=== PATIENT | female | born 1950 | race Caucasian/White ===

== ENCOUNTER 2020-01-01 10:17 | Outpatient (CLI) | payer MEDICARE, BC, SELFPAY ==
--- NOTE | ~2020-01-01 | XR_ITS ---
EXAMINATION: XR hand LT 2V INDICATION: Multiple joint pain, myalgia, arthritis TECHNIQUE: Two views of the left hand are obtained. COMPARISON: None available FINDINGS: There is no fracture. There is advanced osteoarthritis at the first carpometacarpal joint. Mild osteoarthritis is noted at the triscaphe joint. There is moderate to severe osteoarthritis invol ving multiple interphalangeal joints. Negative ulnar variance is noted. The soft tissues are unremark able. IMPRESSION: 1. Osteoarthritis without acute osseous abnormality Reviewed, dictated and finalized at location A.
--- NOTE | ~2020-01-01 | XR_ITS ---
EXAMINATION: XR hand RT 2V, XR wrist RT 2V DATE: 01/01/2020 10:42 INDICATION: Multiple joint pain. Myalgia. Arthritis. TECHNIQUE: 1. Posteroanterior and lateral views of the right wrist were obtained. 2. Dorsal palmar and lateral views of the right hand were obtained. COMPARISON: None. FINDINGS: Alignment of the hand and wrist are normal. No fracture identified. Polyarticular osteoarthritis, se mikaela at the first carpometacarpal and second and third distal interphalangeal joints, moderate at the first interphalangeal and fifth distal interphalangeal joints and mild at the wrist and a few metaca rpophalangeal and remaining interphalangeal joints. Diffuse osteopenia. No focal soft tissue swelling . IMPRESSION: 1. Polyarticular osteoarthritis at the right hand and wrist, moderate to severe at a few joints as de tailed above. 2. Diffuse osteopenia. Reviewed, dictated and finalized at location B. IMPRESSION: 1. Polyarticular osteoarthritis at the right hand and wrist, moderate to severe at a few joints as detailed above. 2. Diffuse osteopenia.
--- NOTE | ~2020-01-01 | XR_ITS ---
EXAMINATION: XR wrist LT 2V INDICATION: Multiple joint pain, myalgia, arthritis TECHNIQUE: Two views of the left wrist are obtained. COMPARISON: None available FINDINGS: There is no fracture. There is advanced osteoarthritis at the first carpometacarpal joint. Mild osteoarthritis is noted at the triscaphe joint. Negative ulnar variance is noted. The soft tissu es are unremarkable. IMPRESSION: 1. Osteoarthritis without acute osseous abnormality. Reviewed, dictated and finalized at location A.
== END 2020-01-01 10:18 | disposition home or self-care (01) ==
LOC: ANHIMG 10:27
PROVIDERS: Visit Provider Internal Medicine Rheumatology
DX: M25.50 Pain in unspecified joint (principal); M79.10 Myalgia, unspecified site; R53.81 Other malaise; R53.83 Other fatigue; M19.042 Primary osteoarthritis, left hand; M19.041 Primary osteoarthritis, right hand; M19.032 Primary osteoarthritis, left wrist; M19.031 Primary osteoarthritis, right wrist; M85.841 Other specified disorders of bone density and structure, right hand
CPT/HCPCS: 73100; 73120

== ENCOUNTER 2021-12-09 19:02 | Emergency (ER) | payer MEDICARE, BC, SELFPAY ==
--- NOTE | ~2021-12-09 | XR_ITS ---
EXAMINATION: XR chest 2V Exam Date/Time: 12/09/2021 19:32 CDT HISTORY: near syncope during exercise this PM., elev bp Comparison: None available. RESULT: Lines, tubes, and devices: None. Lungs and pleura: Senescent change. Left lower lung scarring. Cardiomediastinal silhouette: Prominent central pulmonary arteries. Aortic arch calcification. Other: No acute osseous or upper abdominal finding. IMPRESSION: No acute cardiopulmonary process. Reviewed, dictated and finalized at location K.
[2021-12-09 19:17] VITALS: BP 128/98; PULSE 83; RESP 16; TEMP 36.6; O2SAT 100
--- NOTE | 2021-12-09 19:23 | ECG_ITS ---
Measurements Intervals [place] Rate: 72 P: 55 VA: 155 QRS: -18 QRSD: 97 T: 1 QT: 389 QTc: 426 Interpretive Statements SINUS RHYTHM LOW QRS VOLTAGE IN PRECORDIAL LEADS BORDERLINE R WAVE PROGRESSION, ANTERIOR LEADS BORDERLINE T WAVE ABNORMALITY- INFERIOR LEADS BASELINE ARTIFACT- I, II, III, AVR, AVL, AVF, V1 BORDERLINE ECG NO PREVIOUS ECG AVAILABLE FOR COMPARISON Electronically Signed On 12-10-2021 6:48:38 CDT by Winston Gandhi D.O.
[2021-12-09 19:26] VITALS: BP 145/75; PULSE 82
[2021-12-09 19:27] VITALS: BP 134/75; PULSE 80
[2021-12-09 19:28] VITALS: BP 116/81; PULSE 104
--- NOTE | 2021-12-09 19:47 | ED.DIZZY ---
HPI - Dizziness General Chief Complaint: Dizziness Stated Complaint: PRE-SYNCOPE Time Seen by Provider: 12/09/21 19:04 Source: patient, EMS and RN notes reviewed Mode of arrival: EMS Limitations: no limitations History of Present Illness HPI Narrative: This is a 71 year old female who presents for evaluation of dizziness. Patient states she was doing tony today and she started having lightheaded. She states she was trying to hold on to the wall and she slid to the floor. Bystanders gave her gatorade and wet towels to her head. She states she had been exercising for about 40 minutes when this occurred. She denies chest pain , sob, palpitations, headache, nausea or vomiting. She states she last ate or drank at 11 am today. She denies history of dizziness prior to exercising. She takes part in tony class twice a week. She admits to not eat or drinking alot. MD elicited complaint: lightheadedness Related Data Home Medications Medication Instructions Recorded Confirmed Alive Calcium-Vitamin D3 12/09/21 Allergies Allergy/AdvReac Type Severity Reaction Status Date / Time No Known Allergies Allergy Verified 12/09/21 19:23 Review of Systems Review of Systems: All systems reviewed & are unremarkable except as noted in HPI and below Constitutional: Constitutional: Denies chills, Denies fatigue and Denies fever(s) Eyes: Eyes: Denies change in vision ENT: Denies nasal congestion and Denies sore throat Cardiovascular: Cardiovascular: Denies chest pain, Denies rapid heart rate and Denies radiating jaw, neck or arm pain Respiratory: Respiratory: Denies chest congestion, Denies cough and Denies dyspnea Gastrointestinal: Gastrointestinal: Denies abdominal pain, Denies nausea and Denies vomiting Neurologic: Reports dizziness, Denies headache(s) and Denies focal weakness PMFSH Past Medical History Medical History (Updated 12/10/21 @ 00:00 by Background Daemon) Patient denies medical problems Surgical History Surgical History (Updated 12/09/21 @ 19:52 by Benita Nuñez MD) No pertinent past surgical history Social History Social History (Updated 12/09/21 @ 19:52 by Benita Nuñez MD) Smoking status: Never smoker Exam Narrative: GENERAL: Well-appearing, well-nourished, and in no acute distress. HEAD: Normocephalic, atraumatic EYES: PERRLA and EOMI, conjunctiva clear without discharge EARS: TM's clear bilaterally without erythema or dullness NOSE: Nares clear, no rhinorrhea or epistaxis THROAT:Mucous membranes moist, Oropharynx normal without erythema, exudate, peritonsillar swelling or fluctuance NECK: Supple, without lymphadenopathy or mass RESPIRATORY: No respiratory distress, Airway patent, Respirations non-labored, Clear to auscultation without rales, rhonchi or wheeze HEART: Regular rate and rhythm. No murmur heard. Normal peripheral pulses. ABDOMEN: Soft, nontender, nondistended, normal active bowel sounds. No masses. No rebound or guarding, No organomegaly. EXTREMITIES: No edema, normal strength with full range of motion. SKIN: Warm, dry, normal color without rash NEURO: Alert and oriented x3. CN 2-12 grossly intact. No focal deficits. PSYCH: Normal mood and affect. Course Reevaluation(s) Reevaluation #1: Patient does not have any complaints. She was likely dizzy from dehydration and not eating. Date: 12/09/21 Time: 22:00 Vital Signs Vital signs: Vital Signs Temperature 97.8 F 12/09/21 19:17 Pulse Rate 83 12/09/21 19:17 Respiratory Rate 16 12/09/21 19:17 Blood Pressure 128/98 H 12/09/21 19:17 Pulse Oximetry 100 12/09/21 19:17 Oxygen Delivery Room Air 12/09/21 19:17 Temperature 97.8 F 12/09/21 19:17 Pulse Rate 78 12/09/21 22:16 Respiratory Rate 18 12/09/21 22:16 Blood Pressure 134/78 12/09/21 22:16 Pulse Oximetry 99 12/09/21 22:16 Oxygen Delivery Room Air 12/09/21 19:17 MDM - Dizziness Lab Data Attestati
[2021-12-09 20:08] LABS: Glucose Point of Care 90 mg/dl (65-105)
[2021-12-09] MEDS: SODIUM CHLORIDE 0.9% IV 1,000 ML 999 ML IV CONT (20:13)
[2021-12-09 20:25] LABS: Basophils Percent Auto 0.5 % (0.2-1.2); Eosinophils Absolute Auto 0.1 K/mm3 (0-0.3); Eosinophils Percent Auto 1.1 % (0-4.4); Hematocrit 37.5 % (37.0-47.0); Hemoglobin 12.2 g/dL (12.0-15.0); Immature Granulocyte Absolute 0.03 K/mm3 (0.00-0.031); Immature Granulocyte Percent A 0.5 % (0-0.5); Lymphocytes Absolute Auto 1.68 K/mm3 (0.9-3.2); Mean Corpuscular HGB Conc 32.5 g/dl (32-36); Mean Corpuscular Hemoglobin 27.9 pg (26-34); Mean Corpuscular Volume 85.8 fl (80-100); Mean Platelet Volume 9.2 fl (7.4-10.4); Monocytes Absolute Auto 0.6 K/mm3 (0.1-0.6); Monocytes Percent Auto 9.8 % (2.6-8.5); Neutrophils Percent Auto 62.1 % (45.5-73.1); Platelet Count Result 276 k/mm3 (150-375); Red Blood Count 4.37 M/mm3 (4.2-5.4); Red Cell Distribution Width 12.3 % (11.5-14.5); White Blood Count 6.5 K/mm3 (4.5-10.0)
[2021-12-09 20:26] LABS: Appearance Urine Slightly Cloudy (Clear); Bilirubin Urine Negative (Negative); Blood Urine Trace-lysed (Negative); Color Urine Yellow (Yellow); Glucose Urine UA Trace mg/dL (Negative); Ketones Urine Trace mg/dL (Negative); Leukocyte Esterase Ur 1+ LEU/UL (Negative); Nitrate Urine Negative (Negative); Protein Urine Negative (Negative); Urobilinogen Urine 0.2 mg/dL (<2.0)
[2021-12-09 20:31] LABS: Bacteria Urine Trace /hpf; Mucus Urine Few /lpf; Squamous Epithelial Cell Urine Moderate /hpf (Few)
[2021-12-09 20:39] LABS: Alanine Aminotransferase 16 U/L (6-35); Albumin Level 4.2 g/dL (3.5-5.1); Alkaline Phosphatase 88 U/L (38-126); Anion Gap 12 mmol/L (8-16); Aspartate Amino Transferase 25 U/L (14-36); Bilirubin,Total 0.5 mg/dL (0.2-1.3); Blood Urea Nitrogen 15 mg/dL (7-17); Calcium 8.9 mg/dL (8.4-10.2); Carbon Dioxide 25 mmol/L (22-30); Chloride 104 mmol/L (98-107); Estimated CRCL calculation 53 ml/min; Estimated Glomerular Filt Rate > 60; Glucose 95 mg/dL (65-110); Magnesium 1.9 mg/dL (1.6-2.3); Potassium 3.5 mmol/L (3.4-5.0); Sodium 141 mmol/L (137-145)
[2021-12-09 20:42] LABS: Add Urine Microscopic? YES
[2021-12-09 20:50] LABS: Troponin I 0.016 ng/mL (0.000-0.034)
[2021-12-09] MEDS: LACTATED RINGERS 1,000 ML 999 ML IV CONT (21:13)
[2021-12-09 22:16] VITALS: BP 134/78; PULSE 78; RESP 18; O2SAT 99
== END 2021-12-09 22:12 | disposition home or self-care (01) ==
PROVIDERS: Emergency Provider General Practice
DX: R42 Dizziness and giddiness (principal); R82.90 Unspecified abnormal findings in urine
CPT/HCPCS: 36415; 71046; 80053; 81001; 82948; 83735; 84484; 85025; 93005; 96360; 96361; 99284; J7030; J7120

== ENCOUNTER 2025-03-15 22:31 | Emergency (ER) | payer MEDICARE, BC, SELFPAY ==
--- NOTE | ~2025-03-15 | CT_ITS ---
CTA CHEST CLINICAL HISTORY: SOB, chest discomfort; dimer >1 . COMPARISON: None TECHNIQUE: Helical CTA performed from thoracic inlet to upper abdomen 100 mL Omnipaque 350 Coronal, sagittal reformats. Multiplanar MIPS CT images acquired with automatic exposure control for dose reduction DLP: 324 mGy-cm FINDINGS: Pulmonary arteries: No PE. Thoracic Aorta: No dissection or aneurysm. Heart/pericardium: Unremarkable. RV/LV ratio: Normal. Lungs/Pleura: Minimal atelectasis left lower lobe. Tracheobronchial tree: Patent. Nodes: No enlarged nodes. Bones: No acute bony abnormality. Soft tissues: Unremarkable. Visualized upper abdomen: Unremarkable. IMPRESSION: 1. No PE or other acute cardiopulmonary findings. Reviewed, dictated and finalized at location R. LESNAKE FARMER
--- NOTE | ~2025-03-15 | XR_ITS ---
Examination: XR chest 2V Clinical History: sob Comparison: 12/09/2021 Technique: PA and Lateral Findings: Cardiomediastinal silhouette normal size and configuration. Lungs clear. Except trace left basilar atelectasis and/or scar. No acute bony abnormality. IMPRESSION: 1. No acute cardiopulmonary findings. Reviewed, dictated and finalized at location R. HT NURSE
[2025-03-15 22:31] VITALS: BP 130/79; PULSE 85; RESP 20; TEMP 36.8; O2SAT 95
[2025-03-15 22:42] VITALS: BP 130/79; PULSE 80; RESP 22; O2SAT 97
[2025-03-15 22:43] VITALS: BP 130/79; PULSE 80; PULSE 83; RESP 16; RESP 26; TEMP 36.8; O2SAT 97
--- NOTE | 2025-03-15 22:45 | ECG_ITS ---
Test Date: 2025-03-15 22:49:09 Measurements Intervals [place] Rate: 77 P: 56 CO: 161 QRS: -19 QRSD: 106 T: 31 QT: 393 QTc: 446 Interpretive Statements SINUS RHYTHM WITH OCCASIONAL SUPRAVENTRICULAR PREMATURE COMPLEXES LOW QRS VOLTAGE IN PRECORDIAL LEADS PATTERN CONSISTENT WITH PULMONARY DISEASE BASELINE ARTIFACT- I, III, AVR, AVL BORDERLINE ECG No previous ECG available for comparison Electronically Signed On 03-16-2025 09:08:04 COST ESTIMATING MANAGER by Winston Gandhi D.O.
[2025-03-15 22:46] VITALS: BP 138/67; PULSE 80; RESP 23; O2SAT 97
[2025-03-15 23:33] LABS: Influenza A QL RT-PCR Negative (Negative); Influenza B QL RT-PCR Negative (Negative); RSV RNA, RT-PCR Negative (Negative); SARS-CoV-2 RNA PCR Negative (Negative)
[2025-03-15 23:46] VITALS: BP 136/56; PULSE 81; RESP 14
[2025-03-16] VITALS (28 sets, daily range): BP systolic 109–129; BP diastolic 65–83; PULSE 73–87; RESP 15–28; TEMP 36.8; O2SAT 89–99
[2025-03-16] MEDS: ASPIRIN 81 MG CHEWABLE TABLET 324 MG PO (00:11)
[2025-03-16 00:26] LABS: Hematocrit 34.2 % (37.0-47.0); Hemoglobin 11.5 g/dL (12.0-15.0); Immature Granulocyte Percent A 0.2 % (0-0.5); Lymphocytes Absolute Auto 0.43 K/mm3 (0.9-3.2); Mean Corpuscular HGB Conc 33.6 g/dl (32-36); Mean Corpuscular Hemoglobin 29.0 pg (26-34); Mean Corpuscular Volume 86.1 fl (80-100); Nucleated Red Blood Cells Absolute Auto 0.000 K/mm3 (0.0-0.012); Nucleated Red Blood Cells Perc 0.0 % (0.0-0.2); Platelet Count Result 213 k/mm3 (150-375); Red Blood Count 3.97 M/mm3 (4.2-5.4); White Blood Count 6.6 K/mm3 (4.5-10.0)
[2025-03-16 00:36] LABS: Alanine Aminotransferase 27 U/L (6-35); Albumin Level 3.9 g/dL (3.5-5.1); Alkaline Phosphatase 105 U/L (38-126); Anion Gap 4 mmol/L (4-12); Aspartate Amino Transferase 35 U/L (14-36); Bilirubin,Total 0.7 mg/dL (0.2-1.3); Blood Urea Nitrogen 17 mg/dL (7-17); Calcium 8.9 mg/dL (8.4-10.2); Carbon Dioxide 26 mmol/L (22-30); Chloride 108 mmol/L (98-107); Estimated CRCL calculation 51 ml/min; Estimated Glomerular Filt Rate > 60; Glucose 125 mg/dL (65-110); Lipase 157 U/L (23-300); Potassium 3.7 mmol/L (3.4-5.0); Sodium 138 mmol/L (137-145); Total Protein 6.7 g/dL (6.3-8.2)
[2025-03-16 00:37] LABS: INR 1.1; Prothrombin Time 13.9 Seconds (11.1-14.7)
[2025-03-16 00:39] LABS: Partial Thromboplastin Time 31.0 Seconds (22.3-36.8)
[2025-03-16 00:48] LABS: Troponin I < 0.012 ng/mL (0.000-0.034)
--- NOTE | 2025-03-16 00:48 | ED_ITS ---
HPI - SOB/Dyspnea General Chief Complaint: Shortness of Breath/Dyspnea Stated Complaint: SOB Time Seen by Provider: 03/16/25 00:35 Source: patient and family Mode of arrival: EMS Limitations: no limitations History of Present Illness HPI Narrative: Patient presents from home where she lives by herself with shortness of breath that started today. Has been having uri symptoms for 3 days. No underlying respiratory issues. No edema. EMS gave O2 which she reports made her feel better. They also administered Zofran for her nausea and she states this is better now. She felt lightheaded when laying back. Took a home covid test that was negative. Experiencing chest discomfort. History of breast cancer (finished treatment >1 year ago in November). No anticoagulation. History of left knee replacement in april 2024. Has been taking Tylenol. Has had a cough productive of phlegm. No fevers/chills/sick contacts. Cardiac risk factors HTN:0 HLD:0 DM:0 Obese:0 Smoker:0 Personal history NC/TIA/CVA: 0 Fam Hx NC in first degree relative <65yo:0 Related Data Home Medications ?Medication ?Instructions ?Recorded ?Confirmed ?Last Taken ?Type Alive Calcium-Vitamin D3 12/09/21 Unknown History Allergies Allergy/AdvReac Type Severity Reaction Status Date / Time No Known Allergies Allergy Verified 03/15/25 22:58 PMFSH Past Medical History Medical History History of breast cancer Surgical History Surgical History History of left knee replacement Apr 2024 Social History Social History Smoking status: Never smoker Living arrangements: alone Exam 2 Narrative: GENERAL: Well-appearing, well-nourished, and in no acute distress. HEAD: Normocephalic, atraumatic. EYES: Non injected, non icteric ENT: Nares clear, no rhinorrhea or epistaxis. Gross auditory acuity intact. NECK: Supple. No meningismus. CHEST: Speaking in full sentences. No respiratory distress. Lungs clear to auscultation bilaterally without wheezes, crackles or focal consolidation. HEART: Regular rate and rhythm. . ABDOMEN: Soft, nondistended. No rigidity or guarding. Not peritoneal EXTREMITIES: Normal range of motion. No lower extremity edema. SKIN: Warm, dry, no rash. NEURO: No focal deficits. Alert and oriented. Answering questions. Following commands. Normal speech without aphasia or dysarthria. PSYCH: Normal mood and affect. Course Vital Signs Vital signs: Vital Signs Temperature 98.2 F 03/15/25 22:31 Pulse Rate 85 03/15/25 22:31 Respiratory Rate 20 03/15/25 22:31 Blood Pressure 130/79 03/15/25 22:31 Pulse Oximetry 95 03/15/25 22:31 Oxygen Delivery Room Air 03/15/25 22:31 Temperature 98.3 F 03/16/25 03:54 Pulse Rate 76 03/16/25 07:01 Respiratory Rate 20 03/16/25 07:01 Blood Pressure 127/66 03/16/25 07:01 Pulse Oximetry 94 03/16/25 07:01 Oxygen Delivery Room Air 03/15/25 22:42 MDM MDM Narrative Medical decision making narrative: Patient presents with shortness of breath that started today, associated with some chest discomfort. Has been having URI symptoms (productive cough) for 3 days. Also nausea although this is improved after EMS gave zofran. they also applied o2 for comfort and she reports feeling better after this. not currently on O2. In the emergency department she is afebrile with vital signs within normal limits. Given history of breast cancer D-dimer ordered. Viral swab negative. Normocytic anemia, a drop of 0.7 from previous which was several years ago. HEART SCORE History 2 highly suspicious 1 moderately suspicious 0 slightly suspicious History score [address] depression/elevation not due to LBBB, LVH, or digoxin [address] depression but LBBB, LVH, nonspecific repolarization changes 0 normal ECG score 0 Age 2 >/= 65 1 45-64 0 <45 Age score 2 Risk factors (HTN, hypercholesterolemia, DM, obesity with BMI >30, current smoker or cessation </=3mo), positive fam hx with parent or sibling with CVD before age 65, atherosclerotic disease (prior NC, PCI/CABG, CVA/TIA, or peripheral arterial disease) 2 >/= 3 risk factors or history of atherosclerotic dz 1 - 1-2 risk factors 0 no known risk factors Risk factor score 0 Initial Troponin 2 >3 times normal limit 1 1-3 times normal limit 0 less than or equal to normal limit Troponin score 0 Total HEART Score 2 D[address] >[address] PE ordered. Repeat troponin within normal limits. There is a significant delay in obtaining CT interpretation. Multiple phone calls are made including to stat rad as well as Radiology Department at [facility] once there daytime hours. CT as below. Patient otherwise has been stable for discharge with appropriate vital signs. Discharged advised follow-up with PCP and cardiology outpatient and provided prescription for Tessalon Perles. Differential Diagnosis Differential Diagnosis: bronchitis, acute viral syndrome, PNA, PE; ACS; PTX Lab Data [facility] Lab Attestation statement: I personally reviewed the patient's lab results. 03/16/25 00:13 03/16/25 00:13 Labs: Lab Results 03/15/25 03/16/25 03/16/25 Range/Units 22:47 00:13 02:56 WBC 6.6 (4.5-10.0) K/mm3 RBC 3.97 L (4.2-5.4) M/mm3 Hgb 11.5 L (12.0-15.0) g/dL Hct 34.2 L (37.0-47.0) % MCV 86.1 (80-100) fl MCH 29.0 (26-34) pg MCHC 33.6 (32-36) g/dl RDW 12.5 (11.5-14.5) % Plt Count 213 (150-375) k/mm3 MPV 8.8 (7.4-10.4) fl Immature Gran % (Auto) 0.2 (0-0.5) % Neut % (Auto) 83.3 H (45.5-73.1) % Lymph % (Auto) 6.5 L (18.3-44.2) % Jones % (Auto) 9.2 H (2.6-8.5) % Eos % (Auto) 0.3 (0-4.4) % Baso % (Auto) 0.5 (0.2-1.2) % Lymph # (Auto) 0.43 L (0.9-3.2) K/mm3 Jones # (Auto) 0.6 (0.1-0.6) K/mm3 Eos # (Auto) 0.0 (0-0.3) K/mm3 Baso # (Auto) 0.0 (0.0-0.1) K/mm3 Abs Immat Gran (auto) 0.01 (0.00-0.031) K/mm3 Absolute Neuts (auto) 5.5 (1.3-6.7) K/mm3 Absolute Nucleated RBC 0.000 (0.0-0.012) K/mm3 Nucleated RBC % 0.0 (0.0-0.2) % PT 13.9 (11.1-14.7) Seconds INR 1.1 APTT 31.0 (22.3-36.8) Seconds D-Dimer 1.12 H (<0.48) ug/mL Sodium 138 (137-145) mmol/L Potassium 3.7 (3.4-5.0) mmol/L Chloride 108 H (98-107) mmol/L Carbon Dioxide 26 (22-30) mmol/L Anion Gap 4 (4-12) mmol/L BUN 17 (7-17) mg/dL Creatinine 0.75 (0.7-1.0) mg/dL Estim Creat Clear Calc 51 ml/min Estimated GFR > 60 (59 - ) Glucose 125 H (65-110) mg/dL Calcium 8.9 (8.4-10.2) mg/dL Total Bilirubin 0.7 (0.2-1.3) mg/dL AST 35 (14-36) U/L ALT 27 (6-35) U/L Alkaline Phosphatase 105 (38-126) U/L Troponin I < 0.012 < 0.012 (0.000-0.034) ng/mL Total Protein 6.7 (6.3-8.2) g/dL Albumin 3.9 (3.5-5.1) g/dL Lipase 157 (23-300) U/L Influenza A (RT-PCR) Negative (Negative) Influenza B (RT-PCR) Negative (Negative) RSV (RT-PCR) Negative (Negative) SARS-CoV-2 RNA (RT-PCR) Negative (Negative) Imaging Data Attestation: I personally reviewed and interpreted this imaging study as follows: My impression: Chest x-ray without acute intrathoracic process on my independent interpretation. Radiologist's impression: ITS Impressions Chest CTA 03/16/25 08:14 IMPRESSION: 1. No PE or other acute cardiopulmonary findings. Chest X-Ray 03/16/25 08:18 IMPRESSION: 1. No acute cardiopulmonary findings. ECG Data EKG #1: Attestation: I personally reviewed and interpreted this ECG as follows: ECG completion date: 03/15/25 ECG completion time: 22:49 Interpretation: Normal sinus rhythm at a rate of 77 beats per minute. There is a PVC. CA interval 161. QRS 106. QT/QTC 393/446. T-wave flattening in 3 but upright in contiguous inferior leads. No other T-wave inversions. No marked ST segment elevation or depression. EKG #2: Attestation: I personally reviewed and interpreted this ECG as follows: ECG completion date: 03/16/25 ECG completion time: 02:59 Interpretation: Normal sinus rhythm at a rate of 72 beats per minute. CA interval 160. QRS 101. QT/QTC 398/437. T-wave flattening versus inversion in 3 but upright in contiguous inferior leads. No other T-wave inversions. No ST segment elevations or depressions. Discharge Plan Discharge Clinical Impression: Shortness of breath, Normocytic anemia, Chest discomfort, Acute cough Patient Disposition: Home Condition: Stable Instructions: Antibiotic Form, Chest Pain (DC), Acute Bronchitis (ED), Anemia (ED), Acute Cough (ED), Shortness of Breath (ED) Additional Instructions: Many apologies for the delay in interpretation of your CT scan. No evidence of blood clot. As we discussed, your symptoms sound viral although you tested negative for COVID, influenza a, influenza B, and RSV. We call this bronchitis. Rest and maintain your hydration and you can use acetaminophen and ibuprofen for supportive care. The benzonatate/Tessalon Perles may help with the cough. Your cardiac workup was reassuring. However, given your age/risk factors, I do recommend you follow-up with a textile conversion manager outpatient. The name of a doctor is listed below. Follow-up with your primary care physician. If you do not have 1 the name of a doctor is listed below. Return to the emergency department any new, worsening, or unmanaged symptoms. Patient Language: Syriac Prescriptions: New benzonatate 100 mg capsule 100 mg PO BID PRN (Reason: cough) Qty: 20 0RF No Action Alive Calcium-Vitamin D3 nitrofurantoin monohyd/m-cryst [Macrobid] 100 mg capsule 100 mg PO Q12H 3 Days Qty: 6 0RF Rx Instructions: must administer with a meal/food Follow-up/Referrals: Chino Navarro MD [Physician, Cardiology] Thea Rey DO [Physician, Family Practice] PHYSICIAN NOT ON STAFF,NONSTAFF [Non-Staff] Stand Alone Forms: Work/School Release IP Time of Disposition: 08:33
--- OUTSIDE RECORDS SUMMARY | 2025-03-16 01:38 | XMS_ITS ---
Author Organization [facility] Address [address] [place] [address] Care Team Providers Care Burr Sander Name Role Phone Ortiz Olson MD Primary Care Provider Deidre Pineda MD Unavailable Rebeca Scherer MD Unavailable [phone] Andrei Huerta DO Unavailable [phone] Active Problems Problem Noted Date Diagnosed Date S/P total knee arthroplasty, left 05/30/2024 Personal history of radiation therapy 12/01/2023 Invasive ductal carcinoma of breast, female, rig ht 10/06/2023 Assessment & Plan (12/05/2023 10:10 AM CDT): Continues her routine follow-up and breast cancer screening Malignant neoplasm of upper- outer quadrant of right breast in female, estrogen receptor positive 10/03/2023 Cancer Staging:Pathologic stage from 10/03/2023:Stage IA(pT1b, pN0(sn), cM0, G1, ER+, CO+, HER2-, Oncotype DX score: 10) - Signed by Rebeca Scherer MD on 10/03/2023 Overweight 09/05/2023 Assessment & Plan (12/05/2023 10:11 AM CDT): Begin low-dose semaglutide as outlined above Right lateral abdominal pain 01/21/2023 Assessment & Plan (01/21/2023 9:54 AM CDT): Possibly musculoskeletal at this time we will start with lab work including a CBC/CMP/sed rate/CRP if these tests are normal I think we can safely follow her with heat and anti-inflammatory and stretching. At this point no other evaluations need to be done with a completed urinalysis/CT abdomen and pelvis/ultrasound of pelvis/gynecologic workup. She is status post appendectomy. Colonoscopy done 2 years ago was benign with 2 polyps and no evidence of diverticular disease Lichen amyloidosis 09/01/2022 Primary osteoarthritis of left knee 07/21/2022 07/21/2022 Assessment & Plan (09/01/2022 2:39 PM CDT): She now follows with Dr. Abrams at [facility], reports that she is due for injections there has been no mention of surgery coming up Osteopenia of multiple sites 11/26/2019 Left leg pain 01/11/2019 Assessment & Plan (03/28/2019 2:19 PM TRACTOR EXPERT): Has seen Dr ABRAMS, had injection due for PT Assessment & Plan (02/22/2019 2:31 PM TRACTOR EXPERT): She has seen Dr. Neely MRI is planned Assessment & Plan (01/11/2019 8:56 AM CDT): She is describing left-sided popliteal pain which has been going on 3 months, at this point I will refer her to Orthopedics consider Marin cyst Body mass index (BMI) 26.0-26.9, adult 8 Overview (02/03/2018): BMI Follow-up includes: nutrition counseling, exercise counseling and education provided. Assessment & Plan (11/08/2023 11:26 AM CDT): The patient's major issue is weight loss. Medication restart is planned, and is on prescription 0.5. A prescription was also called in, and she has insurance coverage. Plan: Wegovy 0.5/0.25 for weight management. Monitor weight loss progress closely. Schedule a follow-up appointment in approximately 8 weeks. Patient's goal weight set at approximately 150 lbs; continue to support and monitor progress towards this goal. Assessment & Plan (09/05/2023 11:17 AM CDT): The patient's major issue is weight loss. Medication restart is planned, and today she received samples of Wegovy 0.25. A prescription was also called in, and she has insurance coverage. Plan: Restart Wegovy 0.25 for weight management. Monitor weight loss progress closely. Schedule a follow-up appointment in approximately 8 weeks. Patient's goal weight set at approximately 150 lbs; continue to support and monitor progress towards this goal. Assessment & Plan (06/13/2023 2:17 PM CDT): BMI Follow-up includes: nutrition counseling, exercise counseling, and education provided. She would like to lose another 12 lb patient states. We discussed various options. Will increase phentermine to 37.5 and follow Patient also given a sample of semaglutide 0.25 to use weekly I will see her back in 8 weeks Assessment & Plan (04/26/2023 10:09 AM TRACTOR EXPERT): She would like to lose another 12 lb patient states. We discussed various options. We will try her on low-dose phentermine 8 mg as she has no other contraindications at this point. I will follow up in 2 months Assessment & Plan (03/24/2023 1:29 PM TRACTOR EXPERT): BMI Follow-up includes: nutrition counseling, exercise counseling, and education provided. Has gained 12 pounds in last few months, can not find WEGOVY . Will attempt to restart Assessment & Plan (01/21/2023 9:23 AM CDT): BMI Follow-up includes: nutrition counseling, exercise counseling, and education provided. Assessment & Plan (12/02/2022 3:03 PM CDT): BMI Follow-up includes: nutrition counseling, exercise counseling, and education provided. She is very close to goal weight takes Wegovy every other week at this point Assessment & Plan (04/09/2022 7:40 AM TRACTOR EXPERT): We will restart semaglutide 0.25, I have given her samples today I would like her to increase 2.5. We can follow up with her in a month Assessment & Plan (12/25/2021 9:30 AM CDT): Did well with liraglutide 1.2 however lack of samples makes it unsustainable On mounjaro has lost 6 pounds with 5 mg, will change to q oweek Assessment & Plan (11/03/2020 12:53 PM CDT): Goal weight of 160 Will continue ozempic to 0.75, we discussed side effects she states she is having very minimal nausea I gave two samples today of Ozempic Encouraged her to continue working on diet exercise Assessment & Plan (05/12/2020 11:24 AM TRACTOR EXPERT): We discussed weight loss today, at this point she is maintaining her weight on Liraglutide 3.0 however we do not have samples will try to arrange for some samples for Assessment & Plan (01/21/2020 2:45 PM TRACTOR EXPERT): Continue 3.0 of Liraglutide until we follow-up in the next 6 weeks I gave her samples today Assessment & Plan (07/24/2019 11:10 AM CDT): BMI Follow-up includes: nutrition counseling, exercise counseling and education provided. Assessment & Plan (05/08/2019 7:47 AM TRACTOR EXPERT): We discussed weight loss extensively today continue her phentermine 15 q.a.m. will continue samples of Liraglutide Assessment & Plan (07/07/2018 1:38 PM CDT): We had a discussion about weight loss today she has lost another 2 lb states she would like to continue to work on weight loss diet, we will continue her at 1.2 of Liraglutide follow-up in a month Assessment & Plan (02/22/2018 10:22 AM TRACTOR EXPERT): BMI Follow-up includes: nutrition counseling, exercise counseling and education provided. She is down another 5 lb since 3 weeks ago she is on 1.8 of Liraglutide her goal is 160 she is at 165 we will see her in 3 months she will work on diet exercise and weight loss at this point Encounter for Medicare annual wellness exam 10/21 Assessment & Plan (05/30/2024 10:12 AM CDT): A Medicare Annual Wellness Visit (AWV) was done today as well. The patient filled out a depression screen, functional assessment screen, health risk assessment, and other physicians list. All the elements of this exam were completed as outlined by CMS. Please note that the documentation of this is split between paper documentation and this electronic record. Assessment & Plan (05/14/2022 8:35 AM TRACTOR EXPERT): A Medicare Annual Wellness Visit (AWV) was done today as well. The patient filled out a depression screen, functional assessment screen, health risk assessment, and other physicians list. All the elements of this exam were completed as outlined by CMS. Please note that the documentation of this is split between paper documentation and this electronic An electrocardiogram was performed in the office today. Review of the electrocardiogram shows normal sinus rhythm, no ST-T wave changes, no ischemic changes, no other abnormalities. Low-voltage Assessment & Plan (05/11/2021 10:13 AM TRACTOR EXPERT): A Medicare Annual Wellness Visit (AWV) was done today as well. The patient filled out a depression screen, functional assessment screen, health risk assessment, and other physicians list. All the elements of this exam were completed as outlined by CMS. Please note that the documentation of this is split between paper documentation and this electronic record. Assessment & Plan (11/30/2019 9:12 AM CDT): A Medicare Annual Wellness Visit (AWV) was done today as well. The patient filled out a depression screen, functional assessment screen, health risk assessment, and other physicians list. All the elements of this exam were completed as outlined by CMS. Please note that the documentation of this is split between paper documentation and this electronic record. Assessment & Plan (11/22/2018 9:17 AM CDT): A Medicare Annual Wellness Visit (AWV) was done today as well. The patient filled out a depression screen, functional assessment screen, health risk assessment, and other physicians list. All the elements of this exam were completed as outlined by CMS. Please note that the documentation of this is split between paper documentation and this electronic record. Assessment & Plan (11/18/2017 11:24 AM CDT): A Medicare Annual Wellness Visit (AWV) was done today as well. The patient filled out a depression screen, functional assessment screen, health risk assessment, and other physicians list. All the elements of this exam were completed as outlined by CMS. Please note that the documentation of this is split between paper documentation and this electronic record. Slow transit constipation 11/18/2017 Assessment & Plan (09/05/2023 11:16 AM CDT): Assessment: Constipation has resolved completely. The patient has discontinued Linzess. Assessment & Plan (06/13/2023 2:16 PM CDT): Reports that constipation has complete resolved. She has stopped the Linzess at this point Assessment & Plan (04/26/2023 10:18 AM TRACTOR EXPERT): Reports she is doing very well despite not taking Linzess 72 reports a bowel movement every 2-3 days Assessment & Plan (12/02/2022 3:03 PM CDT): Stable on current regimen of Linzess states she takes 72 and sometimes 145 Assessment & Plan (09/01/2022 1:11 PM CDT): Stable on current regimen of Linzess states she takes 72 and sometimes 145 Assessment & Plan (05/14/2022 8:34 AM TRACTOR EXPERT): Reports that 72 and 145 of Linzess were quite well for her Assessment & Plan (02/25/2022 9:53 AM TRACTOR EXPERT): She has seen Colorectal surgery about internal hemorrhoids. Continue Metamucil continue Linzess samples given to Assessment & Plan (12/25/2021 9:31 AM CDT): continues on linzess, indorsing constipation Assessment & Plan (09/22/2021 2:17 PM CDT): Reporting no significant symptoms on Liraglutide 70 to Assessment & Plan (04/06/2021 9:53 AM TRACTOR EXPERT): She states she is doing very well on Linzess 72 we will change her prescription from 145 continue the same Assessment & Plan (09/16/2020 11:03 AM CDT): She states she is doing very well on Linzess 72 we will change her prescription from 145 continue the same Assessment & Plan (08/11/2020 11:24 AM CDT): She is doing very well on 145 a Linzess, I gave her samples today Assessment & Plan (05/12/2020 11:23 AM TRACTOR EXPERT): She is doing very well on 145 a Linzess, I gave her samples today Assessment & Plan (03/17/2020 1:21 PM TRACTOR EXPERT): She is doing very well on 145 a Linzess, she has some diarrhea when she takes a arthritis medication Assessment & Plan (01/21/2020 2:45 PM TRACTOR EXPERT): She is doing very well on 145 a Linzess Assessment & Plan (01/04/2020 9:37 AM CDT): She is doing very well on 1 45 of Linzess, we will continue the same samples given today Assessment & Plan (07/24/2019 1:24 PM CDT): Continue Linzess 145 daily Assessment & Plan (05/10/2019 1:27 PM TRACTOR EXPERT): She is doing very well on Linzess 145 Assessment & Plan (01/11/2019 8:56 AM CDT): States that Linzess 145 is working well for her however insurance on a cover 72 we will give her samples today Assessment & Plan (08/16/2018 1:46 PM CDT): States that bowels are better on Linzess 145, she states she still having bowel movement maybe once a weeks Assessment & Plan (07/07/2018 1:38 PM CDT): She has been taking Linzess 72 states she still having a bowel movement once a week we will have her alternate 72 with 145 Assessment & Plan (05/23/2018 10:13 AM TRACTOR EXPERT): States she is doing ok 72 is to low and 145 is too high,has had capsule endoscopy Assessment & Plan (02/22/2018 10:21 AM TRACTOR EXPERT): States she is doing very well on 145 of Linzess, she is seeing Dr. don to for capsule endoscopy coming up Assessment & Plan (02/03/2018 11:08 AM TRACTOR EXPERT): doing very well on linzess, Assessment & Plan (01/10/2018 10:06 AM CDT): states that 145 of linzess has not helped at all, has not had BM for Several days Assessment & Plan (12/09/2017 10:54 AM CDT): States she did somewhat better on Linzess 72 with a bowel movement every 3 days we will increase her to 145 Primary osteoarthritis of fi rst carpometacarpal joint of left hand 09/18/2015 Arthralgia of multiple joints 08/04/2013 Overview (06/23/2016): JOINT PAIN-MULT JTS Assessment & Plan (12/05/2023 10:10 AM CDT): Follows closely with Rheumatology.Follows with [facility] for arthritis and multiple arthralgias as well as inflammatory arthritis. Stable at this time on current regimen Assessment & Plan (09/05/2023 11:09 AM CDT): Follows with [facility] for arthritis and multiple arthralgias as well as inflammatory arthritis. Stable at this time on current regimen Assessment & Plan (12/02/2022 3:03 PM CDT): Follows with [facility] for arthritis and multiple arthralgias as well as inflammatory arthritis. Stable at this time on current regimen Assessment & Plan (09/22/2021 2:17 PM CDT): Follows with Rheumatology continues on Plaquenil. Due for lab work today Assessment & Plan (04/06/2021 9:54 AM TRACTOR EXPERT): Reports no significant joint issues/continues on hydroxychloroquine Assessment & Plan (05/12/2020 11:23 AM TRACTOR EXPERT): States she is not having any other significant symptoms at this time Assessment & Plan (01/21/2020 2:45 PM TRACTOR EXPERT): She has seen Rheumatology the patient states that she was told that her thyroid function tests were web normal we will have these repeated today Raynaud's phenomenon 08/04/2013 Overview (06/24/2016): RAYNAUD'S SYNDROME Assessment & Plan (05/12/2021 8:51 AM TRACTOR EXPERT): Follows with Rheumatology no significant issues Current Treatment and Therapy Plans No current plan information found. Past Treatment and Therapy Plans No past plan information found. Radiation Treatments * Course [id number]_[id number]/17/2023 - 10/21/2023 Treatment Period Energy Fraction Dose Fractions Total Dose Plans Planned R BREAST APBI 10/17/2023 - 10/21/2023 600 5 / 3,000 Reference Points Delivered [id number]_3000 10/17/2023 - 10/21/2023 3,000 Resolved Problems Problem Noted Date Diagnosed Date Resolved Date Diabetes mellitus 05/30/2024 05/30/2024 URI, acute 02/25/2022 05/14/2022 Assessment & Plan (02/25/2022 9:53 AM TRACTOR EXPERT): She appears to have a bacterial bronchitis will start her on a Z-Nii and Brendan Guerrero follow as her clinical course dictates Lower urinary tract symptoms 06/22/2021 05/14/2022 Assessment & Plan (06/22/2021 2:06 PM CDT): She had a recent E coli UTI and since has had multiple urinary symptoms she has been seen by her scarifier operator she is keeping a voiding diary. I will refer her to Urogynecology for evaluation COVID-19 03/17/2020 12/23/2023 Assessment & Plan (03/17/2020 1:20 PM TRACTOR EXPERT): Had positive test 12-3, no current sx Weight gain 08/16/2018 12/02/2022 Assessment & Plan (09/01/2022 1:10 PM CDT): She is doing very well with another 6 lb weight loss she is down to 159. She would like to stay in the 150-55 range I gave her another sample of semaglutide today Assessment & Plan (07/21/2022 2:06 PM CDT): Has gained roseanne will restart ozempic 0.5, Assessment & Plan (05/14/2022 8:34 AM TRACTOR EXPERT): She is close to her goal weight continues on Wegovy twice a month, samples given today Assessment & Plan (02/25/2022 9:53 AM TRACTOR EXPERT): She is held steady on current weight of 158 we discussed continuing her current Tirezepitide however dosing is difficult because of a supply chain issues Assessment & Plan (11/27/2021 9:21 AM CDT): Did well with liraglutide 1.2 however lack of samples makes it unsustainable On mounjaro roseanne stayed the same at 2.5 will inc to 5 Assessment & Plan (10/23/2021 9:30 AM CDT): Did well with liraglutide 1.2 however lack of samples makes it unsustainable Will switch to terezepitide 2.5 samples given today Assessment & Plan (09/22/2021 2:17 PM CDT): She has gained when weight back to about 10 lb. She would like to weigh between 155 and 160. I gave her samples today Liraglutide. We can follow her up in a month she will start with 0.6 Assessment & Plan (06/22/2021 1:28 PM CDT): Patient has done very well on samples of semaglutide. She is almost at goal I told her we do not have any other samples we talked about alternatively using Liraglutide which will give her samples on currently Assessment & Plan (05/12/2021 8:51 AM TRACTOR EXPERT): Continue on samples of semaglutide she is fairly close to goal at this time Assessment & Plan (09/16/2020 11:03 AM CDT): Goal weight of 160 Will increase ozempic to 0.75, we discussed side effects she states she is having very minimal nausea I gave two samples today of Ozempic Encouraged her to continue working on diet exercise Assessment & Plan (08/11/2020 11:26 AM CDT): Has plateaued, will attempt semaglutide Assessment & Plan (03/17/2020 1:24 PM TRACTOR EXPERT): She has lost another 4 lb she would like to get down to 160 she is now on 3 mg of Saxenda will give her 3 sample boxes and see her in a month She is now 169, she continues on samples of 3.00 liraglutide Assessment & Plan (01/04/2020 9:38 AM CDT): She has lost another 4 lb she would like to get down to 160 she is now on 3 mg of Saxenda will give her 3 sample boxes and see her in a month An electrocardiogram was performed in the office today. Review of the electrocardiogram shows normal sinus rhythm, no ST-T wave changes, no ischemic changes, no other abnormalities. EKG was done today as is unable to be completed during her Medicare preventative Assessment & Plan (07/24/2019 1:24 PM CDT): Will switch back to Victoza as this was previously covered by her insurance Encouraged healthy diet and exercise Assessment & Plan (06/12/2019 10:53 AM CDT): She has plateaued a bit with her weight loss, she will be seeing Dr. joiner I am giving her samples of semaglutide tied she has increase this to .5 , I will have her follow-up with Dr. joiner in the next couple months Assessment & Plan (05/10/2019 1:28 PM TRACTOR EXPERT): We had a discussion about weight today she has almost reached her goal of 160 we talked about maintenance at this point we will give her samples of semaglutide, she will begin 0.25 and then increase to .5 over next few weeks I will see her in 4 weeks Assessment & Plan (02/22/2019 2:32 PM TRACTOR EXPERT): We had a discussion today about weight loss. She is doing well with 3 lb weight loss continue on current regimen of 8 mg of phentermine along with Victoza 1.2, I gave her samples today Assessment & Plan (01/11/2019 8:56 AM CDT): She has plateaued at 170 lb would like to set a goal weight of 160 at this point I will add 8 mg of phentermine to her current regimen, continue Victoza between 0.6 and 1.2 samples given of saxenda today Assessment & Plan (08/16/2018 1:46 PM CDT): States she has been spacing out her Liraglutide she is stable on the 1.2 sample of Liraglutide given BMI 27.0-27.9,adult 07/07/2018 07/24/19 20 Overview (07/07/2018): BMI Follow-up includes: nutrition counseling, exercise counseling and education provided. BMI 28.0-28.9,adult 05/23/2018 07/24/19 20 Overview (05/23/2018): BMI Follow-up includes: nutrition counseling, exercise counseling and education provided. Assessment & Plan (05/23/2018 10:16 AM TRACTOR EXPERT): BMI Follow-up includes: nutrition counseling, exercise counseling and education provided. She has gained A couple pounds, continue 1.2-1.8 samples, will follow in the spring BMI 29.0-29.9,adult 04/20/2017 07/24/19 20 Overview (04/20/2017): BMI Follow-up includes: nutrition counseling, exercise counseling and bmi done today. Assessment & Plan (02/03/2018 2:28 PM TRACTOR EXPERT): She continues to lose weight on samples of Liraglutide. She states she is up to 2.4 she would like to lose another 10 lb we will discuss with her the next visit Assessment & Plan (01/10/2018 10:07 AM CDT): BMI Follow-up includes: nutrition counseling, exercise counseling and education provided. She has lost another 10 pounds, will continue liraglutide samples and follow Assessment & Plan (12/09/2017 10:54 AM CDT): She is doing tremendously well with weight loss of 9 lb she states she has a goal of 170 I will give her samples today Assessment & Plan (11/18/2017 11:26 AM CDT): I had a discussion with the patient rearding weight loss and maintaining a healthy BMI. We reviewed information and samples for SAXENDA. At this point the patient is interested in beginning this medication. I will follow-up in the next 3 weeks as to its effectivity and if any issues. Other chest pain 04/20/2017 07/24/2019 Assessment & Plan (04/20/2017 2:07 PM TRACTOR EXPERT): Seems most likely to be pericarditis vs pleurisy. Will get Complete blood count, erythrocyte sedimentation rate, and serum C-reactive protein level, EKG, and CXR. Since she has had some improvement with NSAIDs, I recommended that she take 600 mg of ibuprofen 3 times a day with omeprazole 20 mg daily as a gastric prophylaxis. We will need to check in with her in a week to see whether she is improving. She will need to call if there is any worsening of her symptoms or if she sees that her symptoms are more correlated to exertion which at this time they are not. EKG today shows normal sinus rhythm with no abnormal ST segment changes. Chest x-ray shows no acute infiltrates and no comment regarding enlargement of the heart or any abnormalities there of. 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 fu change, sx
--- OUTSIDE RECORDS SUMMARY | 2025-03-16 01:38 | XMS_ITS | Clinical Summary ---
Author Organization [facility] Address [facility] [place] [address] Care Team Providers Care Roll Plugger Machine Operator Name Role Phone Ortiz Olson MD Primary Care Provider [phone] Social History Tobacco Use Types Packs/Day Years Used Date Smoking Tobacco: Never Assessed Comments Unknown Sex and Gender Information Value Date Recorded Sex Assigned at Not on file Legal Sex Female 7:21 PM CDT Gender Identity Not on file Sexual Orientation Not on file Plan of Treatment Health Maintenance Due Date Last Done Comments Hepatitis C 1968 DTaP, Tdap and Td Vaccines ( 1 - Tdap) 1967 Pneumococcal Vaccine: 50+ Ye ars (1 of 1 - PCV) 1998 Zoster Vaccines (1 of 2) 1998 Annual Medicare Wellness Visit 2013 Dexa Scan (General) 2013 RSV Immunization or 60+ Years (1 - 1-dose 75+ series) 2023 COVID-19 Vaccine ( - 2024-2 6 season) 2024 Influenza Adult (#1) 2024 Hepatitis A Vaccines Aged Out No long er eligible based on patient's age to complete this topic Meningococcal B Vaccine Aged Out No l onger eligible based on patient's age to complete this topic Meningococcal Vaccine Aged Out No anjana sondra eligible based on patient's age to complete this topic RSV Immunizations Under 20 Months Aged Out No longer eligible based on patient's age to complete this topic Insurance MEDICARE [facility] Care Teams Roll Plugger Machine Operator Relationship Specialty Start Date End Date Otriz Olson MD [address] [place] [id number] PCP - General INTERNAL MEDICINE 01/16/19
--- OUTSIDE RECORDS SUMMARY | 2025-03-16 01:38 | XMS_ITS | Clinical Summary ---
Author Organization [facility] Address [address] [place] [address] Care Team Providers Care Intermodal Owner Operator Truck Driver Name Role Phone Ortiz Olson MD Primary Care Provider [phone] Deidre Pineda MD Unavailable [phone] Rebeca Scherer MD Unavailable [phone] Andrei Huerta DO Unavailable [phone] Allergies No known active allergies Medications cholecalciferol (VITAMIN D-3) 2,000 unit tablet Active hydrOXYchloroQU INE (PLAQUENIL) 200 mg tablet Take by mouth daily Active anastrozole (ARIMIDEX) 1 mg tablet TAKE 1 TABLET(1 MG) BY MOUTH DAILY 90 tablet 1 5 Active calcium carbonate (OS-LEONIDES) 648 mg (260 mg elemental) tablet 260 mg Active celecoxib (CeleBREX) 100 mg capsuleIndicati ons:Osteoarthri tis,Postoperati ve Acute Pain TAKE 2 PILLS WITH BREAKFAST THE DAY BEFORE SURGERY. TAKE 1 PILL TWICE DAILY FOR 4 DAYS AFTER DISCHARGE. 60 capsule Active Active Problems Problem Noted Date Diagnosed Date [...] from 10/03/2023:Stage IA(pT1b, pN0(sn), cM0, G1, ER+, VA+, HER2-, Oncotype DX score: 10) - Signed [...] PM CDT): She now follows with Dr. Sacnhez at [facility], reports that she is due for injections there has been no mention of surgery coming up Osteopenia of multiple sites 11/26/2019 Left leg pain 01/11/2019 Assessment & Plan (03/28/2019 2:19 PM TRIPLE DRUM OPERATOR): Has seen Dr SANCHEZ, had injection due for PT Assessment & Plan (02/22/2019 2:31 PM TRIPLE DRUM OPERATOR): She has seen Dr. Neely MRI is [...] weeks Assessment & Plan (04/26/2023 10:09 AM TRIPLE DRUM OPERATOR): She would like to lose another 12 lb patient states. We discussed various options. We will try her on low-dose phentermine 8 mg as she has no other contraindications at this point. I will follow up in 2 months Assessment & Plan (03/24/2023 1:29 PM TRIPLE DRUM OPERATOR): BMI Follow-up includes: nutrition counseling, exercise counseling, [...] point Assessment & Plan (04/09/2022 7:40 AM TRIPLE DRUM OPERATOR): We will restart semaglutide 0.25, I have [...] exercise Assessment & Plan (05/12/2020 11:24 AM TRIPLE DRUM OPERATOR): We discussed weight loss today, at this point she is maintaining her weight on Liraglutide 3.0 however we do not have samples will try to arrange for some samples for Assessment & Plan (01/21/2020 2:45 PM TRIPLE DRUM OPERATOR): Continue 3.0 of Liraglutide until we follow-up in the next 6 weeks I gave her samples today Assessment & Plan (07/24/2019 11:10 AM CDT): BMI Follow-up includes: nutrition counseling, exercise counseling and education provided. Assessment & Plan (05/08/2019 7:47 AM TRIPLE DRUM OPERATOR): We discussed weight loss extensively today continue [...] month Assessment & Plan (02/22/2018 10:22 AM TRIPLE DRUM OPERATOR): BMI Follow-up includes: nutrition counseling, exercise counseling [...] record. Assessment & Plan (05/14/2022 8:35 AM TRIPLE DRUM OPERATOR): A Medicare Annual Wellness Visit (AWV) was [...] Low-voltage Assessment & Plan (05/11/2021 10:13 AM TRIPLE DRUM OPERATOR): A Medicare Annual Wellness Visit (AWV) was [...] point Assessment & Plan (04/26/2023 10:18 AM TRIPLE DRUM OPERATOR): Reports she is doing very well despite [...] 145 Assessment & Plan (05/14/2022 8:34 AM TRIPLE DRUM OPERATOR): Reports that 72 and 145 of Linzess were quite well for her Assessment & Plan (02/25/2022 9:53 AM TRIPLE DRUM OPERATOR): She has seen Colorectal surgery about internal hemorrhoids. Continue Metamucil continue Linzess samples given to Assessment & Plan (12/25/2021 9:31 AM CDT): continues on linzess, indorsing constipation Assessment & Plan (09/22/2021 2:17 PM CDT): Reporting no significant symptoms on Liraglutide 70 to Assessment & Plan (04/06/2021 9:53 AM TRIPLE DRUM OPERATOR): She states she is doing very well [...] today Assessment & Plan (05/12/2020 11:23 AM TRIPLE DRUM OPERATOR): She is doing very well on 145 a Linzess, I gave her samples today Assessment & Plan (03/17/2020 1:21 PM TRIPLE DRUM OPERATOR): She is doing very well on 145 a Linzess, she has some diarrhea when she takes a arthritis medication Assessment & Plan (01/21/2020 2:45 PM TRIPLE DRUM OPERATOR): She is doing very well on 145 a Linzess Assessment & Plan (01/04/2020 9:37 AM CDT): She is doing very well on 1 45 of Linzess, we will continue the same samples given today Assessment & Plan (07/24/2019 1:24 PM CDT): Continue Linzess 145 daily Assessment & Plan (05/10/2019 1:27 PM TRIPLE DRUM OPERATOR): She is doing very well on Linzess [...] 145 Assessment & Plan (05/23/2018 10:13 AM TRIPLE DRUM OPERATOR): States she is doing ok 72 is to low and 145 is too high,has had capsule endoscopy Assessment & Plan (02/22/2018 10:21 AM TRIPLE DRUM OPERATOR): States she is doing very well on 145 of Linzess, she is seeing Dr. don to for capsule endoscopy coming up Assessment & Plan (02/03/2018 11:08 AM TRIPLE DRUM OPERATOR): doing very well on linzess, Assessment & [...] AM CDT): Follows closely with Rheumatology.Follows with [facility] for arthritis and multiple arthralgias as well as inflammatory arthritis. Stable at this time on current regimen Assessment & Plan (09/05/2023 11:09 AM CDT): Follows with [facility] Rhe[facility]ology for arthritis and multiple arthralgias as well as inflammatory arthritis. Stable at this time on current regimen Assessment & Plan (12/02/2022 3:03 PM CDT): Follows with [facility] Rhe[facility]ology for arthritis and multiple arthralgias as well as inflammatory arthritis. Stable at this time on current regimen Assessment & Plan (09/22/2021 2:17 PM CDT): Follows with Rheumatology continues on Plaquenil. Due for lab work today Assessment & Plan (04/06/2021 9:54 AM TRIPLE DRUM OPERATOR): Reports no significant joint issues/continues on hydroxychloroquine Assessment & Plan (05/12/2020 11:23 AM TRIPLE DRUM OPERATOR): States she is not having any other significant symptoms at this time Assessment & Plan (01/21/2020 2:45 PM TRIPLE DRUM OPERATOR): She has seen Rheumatology the patient states that she was told that her thyroid function tests were web normal we will have these repeated today Raynaud's phenomenon 08/04/2013 Overview (06/24/2016): RAYNAUD'S SYNDROME Assessment & Plan (05/12/2021 8:51 AM TRIPLE DRUM OPERATOR): Follows with Rheumatology no significant issues Resolved Problems Problem Noted Date Diagnosed Date Resolved Date Diabetes mellitus 05/30/2024 05/30/2024 URI, acute 02/25/2022 05/14/2022 Assessment & Plan (02/25/2022 9:53 AM TRIPLE DRUM OPERATOR): She appears to have a bacterial bronchitis will start her on a Z-Nii and Brendan Guerrero follow as her clinical course dictates Lower urinary tract symptoms 06/22/2021 05/14/2022 Assessment & Plan (06/22/2021 2:06 PM CDT): She had a recent E coli UTI and since has had multiple urinary symptoms she has been seen by her loss control manager she is keeping a voiding diary. I will refer her to Urogynecology for evaluation COVID-19 03/17/2020 12/23/2023 Assessment & Plan (03/17/2020 1:20 PM TRIPLE DRUM OPERATOR): Had positive test 12-3, no current sx [...] 0.5, Assessment & Plan (05/14/2022 8:34 AM TRIPLE DRUM OPERATOR): She is close to her goal weight continues on Wegovy twice a month, samples given today Assessment & Plan (02/25/2022 9:53 AM TRIPLE DRUM OPERATOR): She is held steady on current weight [...] currently Assessment & Plan (05/12/2021 8:51 AM TRIPLE DRUM OPERATOR): Continue on samples of semaglutide she is [...] semaglutide Assessment & Plan (03/17/2020 1:24 PM TRIPLE DRUM OPERATOR): She has lost another 4 lb she [...] months Assessment & Plan (05/10/2019 1:28 PM TRIPLE DRUM OPERATOR): We had a discussion about weight today she has almost reached her goal of 160 we talked about maintenance at this point we will give her samples of semaglutide, she will begin 0.25 and then increase to .5 over next few weeks I will see her in 4 weeks Assessment & Plan (02/22/2019 2:32 PM TRIPLE DRUM OPERATOR): We had a discussion today about weight [...] provided. Assessment & Plan (05/23/2018 10:16 AM TRIPLE DRUM OPERATOR): BMI Follow-up includes: nutrition counseling, exercise counseling and education provided. She has gained A couple pounds, continue 1.2-1.8 samples, will follow in the spring BMI 29.0-29.9,adult 04/20/2017 07/24/19 20 Overview (04/20/2017): BMI Follow-up includes: nutrition counseling, exercise counseling and bmi done today. Assessment & Plan (02/03/2018 2:28 PM TRIPLE DRUM OPERATOR): She continues to lose weight on samples [...] 07/24/2019 Assessment & Plan (04/20/2017 2:07 PM TRIPLE DRUM OPERATOR): Seems most likely to be pericarditis vs [...] Overview (07/01/2017): Description: benign. fu change, sx Encounters Date Type Department Care Team Description 01/14/2025 3:00 PM CDT Office Visit [facility] [address] [place] [address] Ken Tse MD Left hip pain (Primary Dx); Lumbar radiculopathy; Hip abductor tendinitis, left 01/10/[address] [place] [address] Ortiz Olson MD 01/08/2025 9:58 AM CDT - 01/08/2025 11:59 PM CDT Hospital Encounter [facility] [address] [place] [address] Pain of left hip Discharge Disposition: Discharge to home or self care 01/08/2025 9:30 AM CDT Office Visit [facility] [address] [place] [address] Ortiz Olson MD Body mass index (BMI) 26.0-26.9, adult (Primary Dx); Primary osteoarthritis of left knee; Pain of left hip; Need for COVID-19 vaccine 01/02/2025 2:30 PM CDT Office Visit [facility] Radiation Oncology [address] [place] [id number] [address] [place], [place] Malignant neoplasm of upper-outer quadrant of right breast in female, estrogen receptor positive (HCC) (Primary Dx); Personal history of radiation therapy from Last 3 Months Immunizations Immunization Administration Dates Next Due COVID-19 mRNA (RealTargeting) 0.3 m L (30 mcg) vaccine (12 years and up) 01/08/2025,12/23/2023 Influenza, Quadrivalent, Hig h Dose, Preservative Free, Intrr 12/02/2022,11/27/2021,02/04/2021,11/29 Influenza, Trivalent, High D ose, Split, Preservative Free, Intramuscular 12/23/2023,01/11/2019,01/10/2018,01/12,01/16/2016 Moderna SARS-CoV-2 Monovalen t Vaccination (12+ YRS) 10/16/2021,01/28/2021,05/07/2020,04/16 Moderna Sars-cov-2 Bivalent Vaccine 50 Mcg/0.5 mL (12+ YRS)-Blue/Gan 04/13/2022 Pneumococcal Conjugate PCV 13 06/03/2015 Pneumococcal Polysaccharide PPV23 11/20/2018, RSV Vaccine, Pref, Recombina nt, Subunit, Adjuvanted, PF, IM (Arexvy) 03/27/2023 Tdap 12/14/2018 ZOSTER Recombinant 02/22/2019,11/22/2018 Surgical History Surgery Date Site/Laterality Comments APPENDECTOMY 1967 CHOLECYSTECTOMY 11/2013 ROTATOR CUFF REPAIR Right TUBAL LIGATION BREAST LUMPECTOMY 08/29/2023 Right TOTAL KNEE ARTHROPLASTY 04/24/2024 Left Medical History Medical History Date Comments Gastric ulcer stomach ulcer Hx Other Medical Vertigo,benign paroxysmal positional Breast cancer (HCC) Family History Medical History Relation Name Comments Prostate cancer Brother Cancer Father Colon cancer Father Cancer, colon; Heart attack Father Heart attack; Other Father CABG after firs t heart attack; Other Maternal Grandfather old age Maternal Grandmother Other Mother Permanent pacem jennifer; Other Paternal Grandfather Other Paternal Grandmother Breast cancer Sister Cancer, breast ; Diabetes type I Son Diabetes madie litus type 1; Relation Name Status Comments Brother Alive Father Maternal Grandfather Maternal Grandmother Mother Paternal Grandfather Paternal Grandmother Sister Alive Son Social History Tobacco Use Types Packs/Day Years Used Date Smoking Tobacco: Never Smokeless Tobacco: Never Tobacco Cessation:Counseling Given: Not Answered Alcohol Use Standard Drinks/Week Comments No 0 (1 standard drink = 0.6 oz pur e alcohol) AUDIT-C Answer Date Recorded Frequency of Alcohol Consumption Not on file 01/04/2024 Q2: How many drinks containi ng alcohol do you have on a typical day when you are drinking? 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 Not on file Not on file Last Filed Vital Signs Vital Sign Reading Time Taken Comments Blood Pressure 124/82 01/08/2025 9:19 AM CDT Pulse 68 01/08/2025 9:19 AM CDT Temperature 36.7 C (98.1 F) 10/04/2024 9:42 AM CDT Respiratory Rate 18 10/04/2024 9:42 AM CDT Oxygen Saturation 98% 01/08/2025 9:19 AM CDT Inhaled Oxygen Concentration - - Weight 72.1 kg (159 lb) 01/14/2025 3:28 PM CDT Height 158.8 cm (5' 2.5) 01/14/2025 3:28 PM CDT Body Mass Index 28.62 01/14/2025 3:28 PM CDT Plan of Treatment Health Maintenance Due Date Last Done Comments Hepatitis B Screening 1968 Osteoporosis Screening-Bone Density Scan 05/03/2025 05/03/2023, 05/11/2021, 12/06/2018 Fall Risk Assessment 05/30/2025 05/30/2024, 06/13/2023, 04/26/2023, Additional history exists Well Visit 65+ 05/30/2025 05/30/2024, 04/22, 05/11/2021, Additional history exists Covid-19 Vaccine (8 - Modern a risk season) 2025 01/08/2025, 12/23/2023, 04/13/2022, Additional history exists Depression Screening 11/20/2025 11/20/2024, 05/30/2024, 06/13/2023, Additional history exists DTaP/Tdap/Td Vaccine (2 - Td or Tdap) 12/14/2028 12/14/2018 Hepatitis C Screening Completed 11/19/2017 Pneumococcal vaccine 65+ Completed 019, 12/09/2017, 06/03/2015 Zoster Vaccine Completed 02/22/2019, 11/22/2018 Colon Cancer Screening-CT Colonography Discontinued 05/11/2021, 12/15/2020, 11/18/2014 Colon Cancer Screening-Colonoscopy Discontinued 05/11/2021, 12/15/2020, 11/18/2014 Colon Cancer Screening-DNA Stool Discontinued 05/11/2021, 12/15/2020, 11/18/2014 Colon Cancer Screening-FIT Discontinued 05/11, 12/15/2020, 11/18/2014 Colon Cancer Screening-FOBT Discontinued 04/22, 12/15/2020, 11/18/2014 Colon Cancer Screening-Sigmoidoscopy Discontinued 05/11/2021, 12/15/2020, 11/18/2014 Colorectal Cancer Screening Discontinued Breast Cancer Screening-Mammogram Discontinued 07/03/2024, 06/29/2023, 06/29/2023, Additional history exists Influenza Vaccine Completed 12/01/2024, , 12/02/2022, Additional history exists Procedures Procedure Name Priority Date/Time Associated Diagnosis Comments XR HIP LEFT 2 OR 3 VIEWS Schedule Routine, Read Routine (OP Routine) 01/08/2025 10:05 AM CDT Pain of left hip SCREENING MAMMOGRAM 2D BILATERAL Schedule Routine, Read Routine (OP Routine) 06/29/2023 2:38 PM CDT DEXA AXIAL SKELETON BONE DENSITY 1 OR MORE SITES Schedule Routine, Read Routine (OP Routine) 05/03/2023 10:18 AM TRIPLE DRUM OPERATOR Osteoporosis, unspecified osteoporosis type, unspecified pathological fracture presence COLONOSCOPY Routine 05/11/2021 10:22 AM TRIPLE DRUM OPERATOR HEPATITIS C ANTIBODY Routine 11/19/2017 8:32 AM CDT Need for hepatitis C screening test from Last 3 Months or Most Recently Relevant to Health Maintenance Results * XR Hip Left 2+ Vw (01/08/2025 10:05 AM CDT) Anatomical Region Laterality Modality Lower Extremities, Hip, Pelvis Left C omputed Radiography 01/08/2025 11:2 2 AM CDT Impressions 01/08/2025 11:36 AM CDT Preserved left hip joint space. Dictated by: Joni Hawley MD The radiology attending physician has personally reviewed this study, and had reviewed and/or edited this written report and agrees with it. Electronically signed by: Everett Sherman M.D. Narrative 01/08/2025 11:36 AM CDT EXAMINATION: XR HIP LEFT 2 OR 3 VIEWS HISTORY: Left hip pain COMPARISON: None FINDINGS: 2 radiographs of the left hip are submitted. There is no acute fracture. Alignment is normal. The joint spaces preserved. There is partially imaged left sacroiliac joint osteoarthritis. There is some heterotopic ossification adjacent greater trochanter. Peripheral vascular calcifications. Procedure Note Everett Sherman MD - 01/08/2025 EXAMINATION: XR HIP LEFT 2 OR 3 VIEWS HISTORY: Left hip pain COMPARISON: None FINDINGS: 2 radiographs of the left hip are submitted. There is no acute fracture. Alignment is normal. The joint spaces preserved. There is partially imaged left sacroiliac joint osteoarthritis. There is some heterotopic ossification adjacent greater trochanter. Peripheral vascular calcifications. IMPRESSION: Preserved left hip joint space. Dictated by: Joni Hawley MD The radiology attending physician has personally reviewed this study, and had reviewed and/or edited this written report and agrees with it. Electronically signed by: Everett Sherman M.D. Ortiz Olson MD [facility] XR PROCEDURES Final Res ult * Screening Mammogram 2D Bilateral (06/29/2023 2:38 PM CDT) Anatomical Region Laterality Modality Breast Bilateral Mammography Historical Provider MD [facility] MAMMO PROCEDURES Aniyah l Result * Dexa Axial Skeleton Bone Density 1 or 2 Site (05/03/2023 10:18 AM TRIPLE DRUM OPERATOR) Anatomical Region Laterality Modality Body N/A Digital Radiogra phy 05/03/2023 10:5 2 AM TRIPLE DRUM OPERATOR Impressions 05/03/2023 11:03 AM TRIPLE DRUM OPERATOR 1. The bone mineral density of the lumbar spine is normal. There has been no significant change in bone mineral density since the baseline examination of 12/06/2018. 2. The bone mineral density of the left femoral neck is mildly decreased. 3. The bone mineral density of the left total hip is mildly decreased. There has been a statistically significant decrease in bone mineral density since the baseline examination of 12/06/2018. 4. Overall, the above findings are diagnostic of low bone mass (osteopenia) by WHO criteria. 5. Based on the FRAX fracture risk model, the 10-year probability for major osteoporotic fracture is 15% and that for hip fracture is 4.5%. This 10-year fracture risk estimate was calculated using the risk factors noted in the history above, along with the femoral neck bone density. FRAX is intended to help guide treatment decisions in men over age 50 and postmenopausal women with low bone mass (osteopenia). The National Osteoporosis Foundation (NOF) recommends that FDA-approved medical therapies be considered in postmenopausal women and men age 50 years and older with osteoporosis and those with low bone mass whose 10-year fracture probability by FRAX is >= 20% for major osteoporotic fracture or >= 3% for hip fracture. However, all treatment decisions require clinical judgment and consideration of individual patient factors, including patient preferences, comorbidities, previous drug use, risk factors not captured in the FRAX model (e.g., frailty, falls, vitamin D deficiency, increased bone turnover, interval significant decline in bone density) and possible under- or overestimation of fracture risk by FRAX. General comments regarding interpretation of bone density measurements: A) In children, premenopausal woman and males under age 50 not at increased risk for fractures only Z-scores, not T-scores are used to indicate risk. A Z-score above -2.0 is defined as within the expected range for age and Z-score at or less than -2.0 is below the expected range for age. A Z-score below the expected range for age in a patient with recent fractures and/or chronic corticosteroid treatment is consistent with a diagnosis of osteoporosis. B) In post menopausal women and males over 50, comparison of the measured bone mineral density with the average value in young normal subjects (the T-score) has been found to be useful in assessing fracture risk. Fracture risk approximately doubles for each 1.0 standard deviation (SD) in individual's hip or spine bone mineral density is below the average value of young normal subjects. The World Health Organization (WHO) has defined T-scores of -1.0 to -2.5 as diagnostic of low bone mass (OSTEOPENIA), and T-scores of -2.5 or lower to be diagnostic of OSTEOPOROSIS, based on the site of lowest bone density. Note that there will be a change in reporting format and reference databases as patients move from the younger population (group A) to the older population (group B) The National Osteoporosis Foundation (www.nof.org) recommends adequate intake of calcium and vitamin D and regular weight-bearing exercise in all patients. They recommend pharmacologic treatment in postmenopausal women and men age 50 and older presenting with any of the followin) Osteoporosis, after appropriate evaluation to exclude secondary causes. 2) A hip or vertebral (clinical or radiographic) fracture, regardless of the bone density. 3) Low bone mass (Osteopenia) and one or more of: other prior fractures, secondary causes associated with high risk of fracture (such as glucocorticoid use or total immobilization), or computed high risk of fracture (10-yr probability of hip fracture >= 3% or a 10-yr probability of any major osteoporosis-related fracture >= 20% based on the [place].-adapted WHO algorithm), available at http://www.shef.ac.uk/FRAX). Dictated by: Pankaj Howell MD The radiology attending physician has personally reviewed this study, and had reviewed and/or edited this written report and agrees with it. Electronically signed by: Ken Butterfield M.D. Narrative 05/03/2023 11:03 AM TRIPLE DRUM OPERATOR BONE DENSITOMETRY OF THE SPINE AND HIP DATE OF STUDY: 05/03/2023 HISTORY: 73-year-old postmenopausal woman with osteopenia. She is being treated with calcium and vitamin D supplementation. Evaluate bone mineral density. Additional risk factors for fracture: none. FINDINGS (SPINE): The bone mineral density of L1-L4 was assessed by dual-energy x-ray absorptiometry. The average bone mineral density within this region is 1.012 gm/sq-cm. This is 2.1 standard deviations above the mean of the average bone mineral density for age- and gender-matched subjects (the Z-score). It is 0.3 standard deviations below the mean peak bone mineral density in young adults (the T-score). FINDINGS (FEMORAL NECK): The bone mineral density of the left femoral neck was assessed by dual-energy x-ray absorptiometry. The average bone mineral density within the femoral neck region is 0.582 gm/sq-cm. This is 0.3 standard deviations below the mean of the average bone mineral density for age- and gender-matched subjects (the Z-score). It is 2.4 standard deviations below the mean peak bone mineral density in young adults (the T-score). FINDINGS (TOTAL HIP): The bone mineral density of the left hip was assessed by dual-energy x-ray absorptiometry. The average bone mineral density within the total hip region is 0.739 gm/sq-cm. This is 0.1 standard deviations above the mean of the average bone mineral density for age- and gender-matched subjects (the Z-score). It is 1.7 standard deviations below the mean peak bone mineral density in young adults (the T-score). SUMMARY OF CURRENT RESULTS: Region BMD T-score Z-score AP Spine (L1-L4) 1.012 -0.3 2.1 Femoral Neck (Left) 0.582 -2.4 -0.3 Total Hip (Left) 0.739 -1.7 0.1 COMPARISON WITH PREVIOUS RESULTS Region Age BMD T-score BMD Change BMD Change Exam Date g/cm2 vs Baseline vs Previous AP Spine (L1-L4) 05/03/2023 73 1.012 -0.3 -0.012 (-1.2%) -0.034 (-3.2%) 05/11/2021 71 1.046 - 0.022 (2.1%) 0.022 (2.1%) 12/06/2018 68 1.025 -0.2 Total Hip(Left) 05/03/2023 73 0.739 -1.7 -0.056 (-7.0%) -0.056 (-7.0%) 05/11/2021 71 0.795 -1.2 0.000 (0.0%) 0.000 (0.0%) 12/06/2018 68 0.795 -1.2 *Denotes significance at 95% confidence level Procedure Note Ken Butterfield MD - 05/03/2023 BONE DENSITOMETRY OF THE SPINE AND HIP DATE OF STUDY: 05/03/2023 HISTORY: 73-year-old postmenopausal woman with osteopenia. She is being treated with calcium and vitamin D supplementation. Evaluate bone mineral density. Additional risk factors for fracture: none. FINDINGS (SPINE): The bone mineral density of L1-L4 was assessed by dual-energy x-ray absorptiometry. The average bone mineral density within this region is 1.012 gm/sq-cm. This is 2.1 standard deviations above the mean of the average bone mineral density for age- and gender-matched subjects (the Z-score). It is 0.3 standard deviations below the mean peak bone mineral density in young adults (the T-score). FINDINGS (FEMORAL NECK): The bone mineral density of the left femoral neck was assessed by dual-energy x-ray absorptiometry. The average bone mineral density within the femoral neck region is 0.582 gm/sq-cm. This is 0.3 standard deviations below the mean of the average bone mineral density for age- and gender-matched subjects (the Z-score). It is 2.4 standard deviations below the mean peak bone mineral density in young adults (the T-score). FINDINGS (TOTAL HIP): The bone mineral density of the left hip was assessed by dual-energy x-ray absorptiometry. The average bone mineral density within the total hip region is 0.739 gm/sq-cm. This is 0.1 standard deviations above the mean of the average bone mineral density for age- and gender-matched subjects (the Z-score). It is 1.7 standard deviations below the mean peak bone mineral density in young adults (the T-score). SUMMARY OF CURRENT RESULTS: Region BMD T-score Z-score AP Spine (L1-L4) 1.012 -0.3 2.1 Femoral Neck (Left) 0.582 -2.4 -0.3 Total Hip (Left) 0.739 -1.7 0.1 COMPARISON WITH PREVIOUS RESULTS Region Age BMD T-score BMD Change BMD Change Exam Date g/cm2 vs Baseline vs Previous AP Spine (L1-L4) 05/03/2023 73 1.012 -0.3 -0.012 (-1.2%) -0.034 (-3.2%) 05/11/2021 71 1.046 - 0.022 (2.1%) 0.022 (2.1%) 12/06/2018 68 1.025 -0.2 Total Hip(Left) 05/03/2023 73 0.739 -1.7 -0.056 (-7.0%) -0.056 (-7.0%) 05/11/2021 71 0.795 -1.2 0.000 (0.0%) 0.000 (0.0%) 12/06/2018 68 0.795 -1.2 *Denotes significance at 95% confidence level IMPRESSION: 1. The bone mineral density of the lumbar spine is normal. There has been no significant change in bone mineral density since the baseline examination of 12/06/2018. 2. The bone mineral density of the left femoral neck is mildly decreased. 3. The bone mineral density of the left total hip is mildly decreased. There has been a statistically significant decrease in bone mineral density since the baseline examination of 12/06/2018. 4. Overall, the above findings are diagnostic of low bone mass (osteopenia) by WHO criteria. 5. Based on the FRAX fracture risk model, the 10-year probability for major osteoporotic fracture is 15% and that for hip fracture is 4.5%. This 10-year fracture risk estimate was calculated using the risk factors noted in the history above, along with the femoral neck bone density. FRAX is intended to help guide treatment decisions in men over age 50 and postmenopausal women with low bone mass (osteopenia). The National Osteoporosis Foundation (NOF) recommends that FDA-approved medical therapies be considered in postmenopausal women and men age 50 years and older with osteoporosis and those with low bone mass whose 10-year fracture probability by FRAX is >= 20% for major osteoporotic fracture or >= 3% for hip fracture. However, all treatment decisions require clinical judgment and consideration of individual patient factors, including patient preferences, comorbidities, previous drug use, risk factors not captured in the FRAX model (e.g., frailty, falls, vitamin D deficiency, increased bone turnover, interval significant decline in bone density) and possible under- or overestimation of fracture risk by FRAX. General comments regarding interpretation of bone density measurements: A) In children, premenopausal woman and males under age 50 not at increased risk for fractures only Z-scores, not T-scores are used to indicate risk. A Z-score above -2.0 is defined as within the expected range for age and Z-score at or less than -2.0 is below the expected range for age. A Z-score below the expected range for age in a patient with recent fractures and/or chronic corticosteroid treatment is consistent with a diagnosis of osteoporosis. B) In post menopausal women and males over 50, comparison of the measured bone mineral density with the average value in young normal subjects (the T-score) has been found to be useful in assessing fracture risk. Fracture risk approximately doubles for each 1.0 standard deviation (SD) in individual's hip or spine bone mineral density is below the average value of young normal subjects. The World Health Organization (WHO) has defined T-scores of -1.0 to -2.5 as diagnostic of low bone mass (OSTEOPENIA), and T-scores of -2.5 or lower to be diagnostic of OSTEOPOROSIS, based on the site of lowest bone density. Note that there will be a change in reporting format and reference databases as patients move from the younger population (group A) to the older population (group B) The National Osteoporosis Foundation (www.nof.org) recommends adequate intake of calcium and vitamin D and regular weight-bearing exercise in all patients. They recommend pharmacologic treatment in postmenopausal women and men age 50 and older presenting with any of the followin) Osteoporosis, after appropriate evaluation to exclude secondary causes. 2) A hip or vertebral (clinical or radiographic) fracture, regardless of the bone density. 3) Low bone mass (Osteopenia) and one or more of: other prior fractures, secondary causes associated with high risk of fracture (such as glucocorticoid use or total immobilization), or computed high risk of fracture (10-yr probability of hip fracture >= 3% or a 10-yr probability of any major osteoporosis-related fracture >= 20% based on the [place].-adapted WHO algorithm), available at http://www.shef.ac.uk/FRAX). Dictated by: Pankaj Howell MD The radiology attending physician has personally reviewed this study, and had reviewed and/or edited this written report and agrees with it. Electronically signed by: Ken Butterfield M.D. Ortiz Olson MD IMG DXA PROCEDURES Final Re sult * Colonoscopy (12/15/2020) Anatomical Region Laterality Modality Other [facility] Provider ENDOSCOPY PROCEDURES Aniyah l Result * Hepatitis C antibody (11/19/2017 8:32 AM CDT) Hep C Ab NON-REACTI VE NON-REACTI VE [facility] SIGNAL TO CUT-OFF 0.02 <1.00 [facility] Blood specimen (specimen) 11/19/2017 8:32 AM CDT 11/19/2017 8:34 AM CDT Narrative Resulting Agency Comment Performing Organization Information: Site ID: J[facility]NA Name: [facility] Address: [address] [address] [facility] [place] [id number] Director: Joni Oneal D.O., MPH Ortiz Olson MD LAB MICROBIOLOGY - GENERAL ORDERABLES Final Result [facility] [place] from Last 3 Months or Most Recently Relevant to Health Maintenance [facility] [place] [address] MEDICARE [facility] FEDERAL MEDICARE [facility] FEDERAL [facility] MEDICARE Care Teams Intermodal Owner Operator Truck Driver Relationship Specialty Start Date End Date Ortiz Olson MD PCP - General Internal Medicine 11/27/19 Deidre Pineda MD [address] [place] [id number] Surgeon General Surgery 09/13/23 Rebeca Scherer MD [address] [place] [id number] Radiation Oncologist Radiation Oncology 09/20/23 Andrei Huerta DO [address] [place] [id number] Medical Oncologist/Investment Banking Analyst Hematology and Oncology 10/03/23
--- OUTSIDE RECORDS SUMMARY | 2025-03-16 01:38 | XMS_ITS | Clinical Summary ---
Author Organization [facility] Address [address] [place] [address] Care Team Providers Care Testing Manager Name Role Phone Ortiz Olson MD Primary Care Provider Allergies No known active allergies Medications calcium carbonate-vitam in D3 1,000 mg-20 mcg (800 unit) Tablet Active hydrOXYchloroQU INE (PLAQUENIL) 200 mg tablet Take 200 mg by mouth daily. Active anastrozole (ARIMIDEX) 1 mg tablet TAKE 1 TABLET BY MOUTH DAILY. START 4 WEEKS AFTER LAST DOSE OF RADIATION 4 Active CALCIUM CARBONATE ORAL Take 1 Tablet by mouth daily. Active acetaminophen (TYLENOL) 325 mg tablet Take 2 Tablets (650 mg) by mouth every 6 hours. 90 Tablet 2 04/25/2024 12:16 PM PRE BILLING CLINICIAN 5 Active ondansetron (ZOFRAN ODT) 4 mg Tablet, Rapid Dissolve Take 1 Tablet (4 mg) by mouth every 6 hours as needed for Nausea/Vomitin g. Dissolve tablet on top of tongue, then swallow with saliva. 10 Tablet 04/25/2024 12:16 PM PRE BILLING CLINICIAN 5 Active oxyCODONE (ROXICODONE) 5 mg tabletIndicatio ns:S/P total knee arthroplasty, left Take 1 Tablet (5 mg) by mouth every 4 hours as needed for Pain, Severe or Pain, Moderate. Max Daily Amount: 30 mg 30 Tablet 5 Active oxyCODONE (ROXICODONE) 5 mg tabletIndicatio ns:S/P total knee arthroplasty, left Take 1 Tablet (5 mg) by mouth every 4 hours as needed for Pain. Max Daily Amount: 30 mg 30 Tablet 5 Active sennosides-docu sate sodium (SENNA-S) 8.6-50 mg tablet Take 1 Tablet by mouth daily. 5 Active HYDROcodone-jorge taminophen (NORCO) 5-325 mg tabletIndicatio ns:S/P total knee arthroplasty, left Take 1 Tablet by mouth every 8 hours as needed for Pain, Moderate. Max Daily Amount: 3 Tablets 40 Tablet 5 Active sennosides-docu sate sodium (SENNA-S) 8.6-50 mg tabletIndicatio ns:S/P total knee arthroplasty, left Take 1 Tablet by mouth daily. 20 Tablet 5 Active Active Problems Problem Noted Date Diagnosed Date S/P total knee arthroplasty, left 05/07/2024 Encounters Date Type Department Care Team Description 03/12/2025 External Device Data [facility] ABSTRACTION Provider, Abstract 03/12/2025 External Device Data [facility] ABSTRACTION Provider, Abstract 03/12/2025 External Device Data [facility] ABSTRACTION Provider, Abstract 01/09/2025 External Device Data [facility] ABSTRACTION Provider, Abstract 01/08/2025 External Device Data [facility] ABSTRACTION Provider, Abstract from Last 3 Months Social History Tobacco Use Types Packs/Day Years Used Date Smoking Tobacco: Never Tobacco Cessation:Counseling Given: Not Answered Alcohol Use Standard Drinks/Week Comments Never 0 (1 standard drink = 0.6 oz pur e alcohol) Feeling Safe Answer Date Recorded Are you in a relationship wi th someone who hurts you emotionally and/or physically? Patient unable to answer 04/24/2024 Food Insecurity Answer Date Recorded Patient needs follow up regardin 07/15/2024 Transportation Needs Answer Date Record ed Patient needs follow up regardin 07/15/2024 Housing Stability Answer Date Recorded Social/Environmental Concerns No concerns Utility Needs Answer Date Recorded Patient needs follow up regardin 07/15/2024 Comments No Sex and Gender Information Value Date Recorded Sex Assigned at Not on file Legal Sex Female 11:33 AM CDT Gender Identity Not on file Sexual Orientation Not on file Last Filed Vital Signs Vital Sign Reading Time Taken Comments Blood Pressure 102/89 04/25/2024 9:05 AM PRE BILLING CLINICIAN Pulse 73 04/25/2024 9:05 AM PRE BILLING CLINICIAN Temperature 36.6 C (97.9 F) 04/25/2024 4:17 AM PRE BILLING CLINICIAN Respiratory Rate 16 04/25/2024 9:05 AM PRE BILLING CLINICIAN Oxygen Saturation 99% 04/25/2024 9:05 AM PRE BILLING CLINICIAN Inhaled Oxygen Concentration - - Weight 68 kg (150 lb) 08/09/2024 9:39 AM CDT Height 158.8 cm (5' 2.5) 08/09/2024 9:39 AM CDT Body Mass Index 27 08/09/2024 9:39 AM CDT Plan of Treatment Upcoming Encounters Date Type Department Care Team (Late st Contact Info) Description 05/13/2025 10:00 AM PRE BILLING CLINICIAN Office Visit [facility] Orth[facility] Surgery at the [facility] Medicine [address] [place] [address] Joe Sanchez MD [address] [place] [address] Health Maintenance Due Date Last Done Comments RSV VACCINE (60+ or ) (1 - 1-dose 75+ series) 2023 INFLUENZA VACCINE (#1) 2024 , 12/02/2022, 11/27/2021, Additional history exists COVID-19 Vaccine (2024-2 6 season) 2024 12/23/2023, 04/13/2022, 10/16/2021, Additional history exists OSTEOPOROSIS SCREENING 05/03/2028 , 05/03/2023, 05/11/2021, Additional history exists DTAP/TDAP/TD VACCINES (2 - T d or Tdap) 12/14/2028 12/14/2018 PNEUMOCOCCAL VACCINE 50+ YEARS Completed 0 11/20/2018, 12/09/2017, 06/03/2015 ZOSTER VACCINE Completed 02/22/2019, 11/22/2018 COLORECTAL SCREENING Discontinued 05/11/2021 Colorectal Cancer Screening Discontinued FIT-DNA Q 3 years Discontinued FIT/FOBT Q 1 year Discontinued Flex Sig/CT Colonography Q 5 years Discontinued Medical Devices Implanted Type Area Belt Sewer Device Identifier Shelf Expiration Date Model / Serial / Lot Cement Bone Biomet R 1x40 [id number] - [id number] Implanted:Qty: 1 on 04/24/2024 by Joe Sanchez MD at [facility] Cement Left: Knee [employer]AY [employer] [id number] 07/18/2026 [id number] / / [id number] Cement Bone Biomet R 1x40 [id number] - [id number] Implanted:Qty: 1 on 04/24/2024 by Joe Sanchez MD at [facility] Cement Left: Knee [employer]JAY [employer] [id number] 07/18/2026 [id number] / / [id number] Comp Fem Persona Cr Sz8 Lt [id number] - [id number] Implanted:Qty: 1 on 04/24/2024 by Joe Sanchez MD at [facility] Knee Left: Knee [employer] [id number] 05/23/2032 [id number] / / [id number] Description:REQ [id number] Persona The Personalized Knee System 0 Degree Keel Keft Size E Cemented Tibia Implanted:Qty: 1 on 04/24/2024 by Joe Sanchez MD at [facility] Knee Left: Knee [employer]JAY [employer] 11/28/2033 [id number] Persona The Personalized Knee System Vivacit-E Highly Crosslinked Polyethylene Left 10 Mm Height Mdial Congruent Implanted:Qty: 1 on 04/24/2024 by Joe Sanchez MD at [facility] Knee Left: Knee SANJAY [employer] 11/30/2028 [id number] Explanted Type Area Belt Sewer Device Identifier Shelf Expiration Date Model / Serial / Lot Screw Persona 2.5x25mm [id number] - [id number] Explanted:Qty : 1 on 04/24/2024 at [facility] Screw Left: Knee [employer] [id number] 04/04/2034 [id number] / / [id number] Insurance [facility] [employer] [place] [address] MEDICARE PART A AND B [facility] FED[employer]AL RX [facility] [employer] Advance Directives For more information, please contact: [phone] * Full Code (Latest Code Status on File) Date Activated Date Inactivated Comments 04/24/2024 3:40 PM 04/25/2024 3:23 PM * Full Code Date Activated Date Inactivated Comments 04/24/2024 8:35 AM 04/24/2024 3:40 PM Care Teams Testing Manager Relationship Specialty Start Date End Date Ortiz Olson MD PCP - General Internal Medicine 09/03/22
--- OUTSIDE RECORDS SUMMARY | 2025-03-16 01:38 | XMS_ITS | Clinical Summary ---
Author Organization [facility] Address [address] [place] [address] Care Team Providers Care Intervention Nurse Name Role Phone Ortiz Olson MD Primary Care Provider [phone] Elena Olson MD Unavailable Joe Sanchez MD Unavailable [phone] Aurelio Purcell MD Unavailable Ursula Matt MD Unavailable [phone] Source Comments [facility],non-owned Affiliates and Associated Physician Practices is amultiple site organization consisting of ambulatory clinics and hospital sitesin [place], [place], [place] and [place]. This disclosure is being madepursuant to the Care Everywhere program and may not contain all information available regarding this patient. Last updated 17.[facility] Allergies No known active allergies Medications * Be aware that medications may not be up to date on this document. Alwaysverify current medications with the patient. Vitamin D3 (Cholecalcifero l) 50 MCG (1999) capsule Take 1 (one) capsule by mouth once daily Active anastrozole (Arimidex) 1 MG tablet Take 1 (one) tablet by mouth once daily 10/06/2023 Active calcium carbonate-vitam in D 600-400 MG-UNIT tablet Take 2 (two) tablets by mouth daily with food Active hydroxychloroqu ine (Plaquenil) 200 MG tablet Take 1 (one) tablet by mouth once daily 12/02/2024 Active Active Problems Problem Noted Date Diagnosed Date S/P total knee arthroplasty, left 05/07/2024 History of therapeutic radiation 12/01/2023 Malignant neoplasm of upper- outer quadrant of right breast in female, estrogen receptor positive 08/05/2023 Lichen amyloidosis 09/01/2022 Microhematuria 02/02/2022 Osteopenia of multiple sites 11/26/2019 Primary osteoarthritis of fi rst carpometacarpal joint of left hand 09/18/2015 Arthralgia of multiple joints 08/04/2013 Overview (03/07/2025): JOINT PAIN-MULT JTS Raynaud's phenomenon 08/04/2013 Overview (03/07/2025): RAYNAUD'S SYNDROME Resolved Problems Problem Noted Date Diagnosed Date Resolved Date Invasive ductal carcinoma of breast, female, right 10/06/2023 03/07/2025 Encounters Date Type Department Care Team Description 03/07/2025 10:30 AM FREIGHT FORWARDER Office Visit [facility] - Internal Medicine [address] [place] [phone] Abner Farnsworth MD Establishing care with new doctor, encounter for (Primary Dx); Arthralgia of multiple joints; Raynaud's phenomenon without gangrene; History of therapeutic radiation; Malignant neoplasm of upper-outer quadrant of right breast in female, estrogen receptor positive (HCC); Microhematuria; S/P total knee arthroplasty, left; Lipid screening; Encounter for hepatitis C screening test for low risk patient; Lichen amyloidosis (HCC) from Last 3 Months Immunizations Immunization Administration Dates Next Due COVID PFIZER 12+YR 30MCG/0.3mL 01/08/2025,2023 Covid Moderna primary monova lent 12+ yr 0.5mL 05/15/2020 INFLUENZA VACCINE, ADJUVANTE D, TRIV. (FLUAD TRIVALENT; 65Y+) (AIIV3) 12/01/2024 INFLUENZA VACCINE, HIGH-DOSE , QUADR. (FLUZONE HIGH-DOSE QUADRIVALENT; 65Y+), 0.7 ML (HD-IIV4) 12/02/2022,11/27/2021,02/04/2021,2019,01/10/2018,01/12/2017,01/16/2016 INFLUENZA VACCINE, HIGH-DOSE , TRIV. (FLUZONE HIGH-DOSE TRIVALENT; 65Y+) (HD-IIV3) 12/23/2023,01/11/2019 PNEUMOCOCCAL PPSV23 11/20/2018 PNEUMOCOCCAL PPV VACCINE 12/09/2017 Pneumococcal Pcv13 Conj 06/03/2015 RSV ABRYSVO PREG OR 60y+ 0.5mL 03/27/2023 RSV AREXVY 60YR+ 0.5ML 03/27/2023 TDAP (7yrs+) 12/14/2018 Zoster Hzv Vacc Recombinant Inj Im 02/22/2019, Family History Medical History Relation Name Comments Multiple Sclerosis Brother 1 Cancer - Prostate Brother 2 Cancer - Colon Father Multiple Sclerosis Father Cancer - Breast Niece Cancer - Breast Sister 1 Multiple Sclerosis Sister 2 Cancer - Ovarian Neg Hx Relation Name Status Comments Brother 1 Brother 2 Father Niece Sister 1 Sister 2 Social History Tobacco Use Types Packs/Day Years Used Date Smoking Tobacco: Never Smokeless Tobacco: Never Tobacco Cessation:Counseling Given: Not Answered Alcohol Use Standard Drinks/Week Comments No 0 (1 standard drink = 0.6 oz pur e alcohol) PHQ-2 Answer Date Recorded Patient Health Questionnaire-2 Score 0 07/04/2024 AUDIT-C Answer Date Recorded Q1: How often do you have a drink containing alcohol? Never 03/07/2025 Q2: How many drinks containi ng alcohol do you have on a typical day when you are drinking? Patient does not drink Q3: How often do you have si x or more drinks on one occasion? Never 03/07/2025 Comments No Sex and Gender Information Value Date Recorded Sex Assigned at Female 04/16/2020 2:46 PM FREIGHT FORWARDER Legal Sex Female 6:14 AM FREIGHT FORWARDER Gender Identity Female 04/16/2020 2:46 PM FREIGHT FORWARDER Sexual Orientation Straight 04/16/2020 2: 46 PM FREIGHT FORWARDER Last Filed Vital Signs Vital Sign Reading Time Taken Comments Blood Pressure 130/79 03/07/2025 10:43 AM FREIGHT FORWARDER Pulse 63 03/07/2025 10:43 AM FREIGHT FORWARDER Temperature 36.4 C (97.5 F) 03/07/2025 10:43 AM FREIGHT FORWARDER Respiratory Rate 18 03/07/2025 10:43 AM FREIGHT FORWARDER Oxygen Saturation 98% 03/07/2025 10:43 AM FREIGHT FORWARDER Inhaled Oxygen Concentration - - Weight 72.1 kg (159 lb) 03/07/2025 10:43 AM FREIGHT FORWARDER Height 157.5 cm (5' 2) 03/07/2025 10:43 AM FREIGHT FORWARDER Body Mass Index 29.08 03/07/2025 10:43 AM FREIGHT FORWARDER Plan of Treatment Upcoming Encounters Date Type Department Care Team (Late st Contact Info) Description 06/11/2025 2:30 PM CDT Office Visit [facility] - Internal Medicine [address] [place] [phone] Abner Farnsworth MD [address] [place] [address] [place] [phone] 07/04/2025 10:00 AM CDT Appointment [facility] [address] [place] [address] [address] [place] [address] 07/04/2025 10:30 AM CDT Office Visit [facility] - Surgery [address] [place] [address], [facility] [address] [place] [address] Deidre Pineda MD [address] [place] [address] [address] [place] [address] Health Maintenance Due Date Last Done Comments HEPATITIS C SCREENING 03/26/1966 SCREENING FOR DIABETES 12/31/2016 MEDICARE AWV 12 MONTHS 05/30/2025 05/30/2024 COVID-19 VACCINE (8 - Moderna risk 2024- season) 2025 01/08/2025, 12/23/2023, 04/13/2022, Additional history exists DTAP/TDAP/TD VACCINES (2 - Td or Tdap) 12/14/2028 12/14/2018 PNEUMOCOCCAL VACCINE 50+ Completed 019, 12/09/2017, 06/03/2015 ZOSTER VACCINE Completed 02/22/2019, 11/22/2018 Respiratory Syncytial Virus (RSV) Vaccine Pt: or over 60 yrs Completed 03/27/2023, 03/27/2023 BONE DENSITY TESTING Completed 05/03/2023, 05/11/2021, 12/06/2018, Additional history exists DEPRESSION SCREENING Completed 07/09/2024, 06/29/2023, 05/20/2022, Additional history exists INFLUENZA VACCINE Completed 12/01/2024, , 12/02/2022, Additional history exists HEPATITIS B VACCINE Aged Out No longe r eligible based on patient's age to complete this topic HIB VACCINE Aged Out No longer eligi ble based on patient's age to complete this topic HPV VACCINE Aged Out No longer eligi ble based on patient's age to complete this topic MENINGOCOCCAL (Group B) VACCINE SHARED DECISION-MAKING Aged Out No longer eligible based on patient's age to complete this topic MENINGOCOCCAL GROUPS A/C/Y/W VACCINE Aged Out No longer eligible based on patient's age to complete this topic Medical Devices Implanted Type Area Foundation Engineer Device Identifier Shelf Expiration Date Model / Serial / Lot Adpt Cath Ureth Conn Implanted:Qty: 1 on 08/29/2023 by Deidre Pineda MD at [facility] [id number] / / Procedures Procedure Name Priority Date/Time Associated Diagnosis Comments DEXA BONE DENSITY 2 SITES Routine 01/24/2017 5:22 PM FREIGHT FORWARDER Age-related bone loss from Last 3 Months or Most Recently Relevant to Health Maintenance Results * DEXA BONE DENSITY 2 SITES (01/24/2017 5:22 PM FREIGHT FORWARDER) Anatomical Region Laterality Modality Other Narrative 01/24/2017 5:22 PM FREIGHT FORWARDER Aurelio Purcell MD 01/24/2017 5:22 PM [facility] Mariana, Bone Density Report Pt. Name: Mariel Schmidt Gender: female : 1950 Age: 66 y.o. Referring Physician: Karie Purcell Exam Date: 01/06/2017 Indication: Screening HIP: Low Bone Mass (Osteopenia) SPINE: normal findings WRIST: Not performed OVERALL IMPRESSION: Low Bone Density (Osteopenia) Technologist: Maddy Lorbert, RT(R), RDMS Images will be scanned into the record. Interpreting Physician: Karie Purcell us Aurelio Purcell MD DEXA ORDERABLES Final Resul t from Last 3 Months or Most Recently Relevant to Health Maintenance Insurance [place] [id number] [facility] Address: [facility] [address] [place] [address] [place] [address] MEDICARE [facility] Member Subscriber Plan / Payer (Ef fective 2006-Present) Name:Mariel Schmidt Relation to Subscriber:Self Name:MARIEL SCHMIDT Payer ID:[id number] (NAIC) Group ID:[id number] Type:O Address: [address] Care Teams Intervention Nurse Relationship Specialty Start Date End Date Ortiz Olson MD [address] [place] [address] [address] [place] [address] PCP - General Internal Medicine 04/22/20 [place] [address] [facility] [address] [place] [phone] Referring Physician Rheumatology 03/07/25 Joe Sanchez MD [address] [facility] [address] [place] [phone] Orthopedic Surgery 03/07/25 Aurelio Purcell MD [address] [facility] [address] [place] [phone] OB House Physician/OB Flooring Salesperson Obstetrics and Gynecology 03/07/25 Ursula Matt MD [address] [facility] [address] [place] [address] Dermatology 03/07/25
--- NOTE | 2025-03-16 02:51 | ECG_ITS ---
Test Date: 2025-03-16 02:59:02 Measurements Intervals [place] Rate: 72 P: 64 NH: 160 QRS: -7 QRSD: 101 T: 37 QT: 398 QTc: 437 Interpretive Statements SINUS RHYTHM CANNOT R/O SEPTAL INFARCT, AGE INDETERMINATE ABNORMAL ECG Compared to ECG 03/15/2025 22:49:09 No significant changes Electronically Signed On 03-16-2025 09:09:35 AMBULANCE ASSISTANT by Winston Gandhi D.O.
[2025-03-16 03:41] LABS: Troponin I < 0.012 ng/mL (0.000-0.034)
[2025-03-16] MEDS: BENZONATATE 100 MG CAPSULE PO (03:59)
--- NOTE | 2025-03-16 07:18 | PC.NURSE ---
Assumed pt care
== END 2025-03-16 08:45 | disposition home or self-care (01) ==
PROVIDERS: Physician Assistant; Emergency Provider Student in an Organized Health Care Education/Training Program
DX: R06.02 Shortness of breath (principal); R07.89 Other chest pain; D64.9 Anemia, unspecified; R05.1 Acute cough; Z20.822 Contact with and (suspected) exposure to COVID-19; Z85.3 Personal history of malignant neoplasm of breast; Z96.652 Presence of left artificial knee joint; R94.31 Abnormal electrocardiogram [ECG] [EKG]
CPT/HCPCS: 36415; 71046; 71275; 80053; 83690; 84484; 85025; 85380; 85610; 85730; 87637; 93005; 99284; A9270; Q9967